=== PATIENT | male | born 1945 | race Caucasian/White ===

== ENCOUNTER 2019-03-06 04:56 | Inpatient (IN) ==
--- NOTE | 2019-02-07 15:32 | Anesthesiology Consultation ---
Date of Service February 07, 2019 History Surgery Operation Date: 03/06/19 07:00 Proposed Procedures p Left Total Knee Arthroplasty - Tj Pacheco DO Height/Weight Height: 5 ft 10 in Weight: 111.13 kg Allergies Allergy/AdvReac Type Severity Reaction Status Date / Time chlorhexidine Allergy Hallucinati Verified 02/04/19 10:56 [From Hibiclens] ng ketorolac [From Toradol] Allergy Verified 02/04/19 11:22 pentazocine [From Talwin] Allergy Rash Verified 02/04/19 10:56 Medications Home Medications Medication Instructions Recorded Confirmed Last Taken aspirin 81 mg PO QAM 02/04/19 02/04/19 Unknown atorvastatin 80 mg PO HS 02/04/19 02/04/19 Unknown finasteride 5 mg PO QPM 02/04/19 02/04/19 Unknown glimepiride 2 mg PO QAM 02/04/19 02/04/19 Unknown lisinopril-hydrochlorothiazide 1 tab PO QAM 02/04/19 02/04/19 Unknown metformin 1,000 mg PO BID 02/04/19 02/04/19 Unknown metoprolol succinate 50 mg PO QAM 02/04/19 02/04/19 Unknown tamsulosin 0.4 mg PO QPM 02/04/19 02/04/19 Unknown Past Medical History Medical History BPH (benign prostatic hyperplasia) CAD (coronary artery disease) STENT X 1 (2012) Diabetes mellitus, type 2 NIDDM Diverticular disease History of pancreatitis History of retinal tear S/P SURGICALLY REPAIR Hyperlipidemia Hypertension Myocardial Infarction 2013 S/P STENT X 1 Osteoarthritis Past Surgical History Surgical History H/O prior ablation treatment PROSTATE 11/2018 History of anesthesia reaction POST-OP URINARY RETENTION History of arthroscopic knee surgery B/L History of cardiac cath 2012= STENT X 1 History of colonoscopy History of intraocular lens implant History of laparoscopic cholecystectomy History of laparoscopy History of open reduction and internal fixation (ORIF) procedure RIGHT FIBULA Social History Smoking Status: Former smoker Do You Dip or Chew Tobacco: No Smoking End Date: QUIT 2012 Hx Alcohol Use: Yes Alcohol type: beer and hard liquor alcohol intake frequency: holidays/special occasions only Hx Substance Use: No substance use type: does not use
--- NOTE | 2019-02-07 15:34 | PAT Medication Instructions ---
Medication Instructions Date of Service February 07, 2019 Home Medications aspirin 81 mg PO QAM atorvastatin 80 mg PO HS finasteride 5 mg PO QPM glimepiride 2 mg PO QAM lisinopril-hydrochlorothiazide 1 tab PO QAM metformin 1,000 mg PO BID metoprolol succinate 50 mg PO QAM tamsulosin 0.4 mg PO QPM Continue as directed aspirin 81 mg PO QAM DO NOT take the morning of surgery glimepiride 2 mg PO QAM lisinopril-hydrochlorothiazide 1 tab PO QAM metformin 1,000 mg PO BID Take morning of surgery With a small sip of water, OTHERWISE NOTHING TO EAT OR DRINK AFTER MIDNIGHT: metoprolol succinate 50 mg PO QAM Take evening before surgery atorvastatin 80 mg PO HS finasteride 5 mg PO QPM metformin 1,000 mg PO BID tamsulosin 0.4 mg PO QPM Other Notes If you have any questions please call us at [phone] or [phone] or [phone] or [phone]
--- NOTE | 2019-02-08 09:13 | History & Physical Report ---
Date of Service February 08, 2019 Date of Surgery: 03-06-19 Assessment & Plan (1) Osteoarthritis of left knee: Risks and benefits of procedure discussed in detail today, patient would like to proceed with a left total knee replacement @ [facility] as scheduled. will obtain medical clearance prior to surgery as well as obtain PATs at [facility]. Will place on ASA 81mg po bid x 1 month post op, f/u 2 weeks post op for routine post-operative care and xray, sooner if having any problems. will make arrangements for HHPT at the time of discharge. History of Present Illness Chief Complaint: left knee pain Primary Care Provider: Jewel Bennett Mr Rj HUMPHREYS is a 73 year old male who complains of left knee pain, presents for pre-op evaluation prior to left total knee replacement at [facility]. He presents with pain, crepitus and decreased rom on the left side. He states that the symptoms have been chronic non-traumatic. The symptoms occur constantly with intermittent worsening. Currently the patient states that the symptoms are moderate-severe. The pain is described as aching and discomforting. The symptoms occur continuously. The symptoms are aggravated by ascending stairs, daily activities, descending stairs, first steps while awake, weight bearing and walking. Jweel states that the symptoms are relieved by no specific activity. In addition to knee pain he is also experiencing limping, joint pain, decreased mobility, crepitus, loss of motion and stiffness. He has been treated with physical therapy, has had Visco injection in the past with no relief, he has also used knee braces in the past with no relief. Allergies Allergy/AdvReac Type Severity Reaction Status Date / Time chlorhexidine Allergy Hallucinati Verified 02/04/19 10:56 [From Hibiclens] ng ketorolac [From Toradol] Allergy Verified 02/04/19 11:22 pentazocine [From Talwin] Allergy Rash Verified 02/04/19 10:56 Home Medications Home Medications Medication Instructions Recorded Confirmed Type aspirin 81 mg PO QAM 02/04/19 02/04/19 History atorvastatin 80 mg PO HS 02/04/19 02/04/19 History finasteride 5 mg PO QPM 02/04/19 02/04/19 History glimepiride 2 mg PO QAM 02/04/19 02/04/19 History lisinopril-hydrochlorothiazide 1 tab PO QAM 02/04/19 02/04/19 History metformin 1,000 mg PO BID 02/04/19 02/04/19 History metoprolol succinate 50 mg PO QAM 02/04/19 02/04/19 History tamsulosin 0.4 mg PO QPM 02/04/19 02/04/19 History Past Med/Surg History Medical History BPH (benign prostatic hyperplasia) CAD (coronary artery disease) STENT X 1 (2012) Diabetes mellitus, type 2 NIDDM Diverticular disease History of pancreatitis History of retinal tear S/P SURGICALLY REPAIR Hyperlipidemia Hypertension Myocardial Infarction 2012 S/P STENT X 1 Osteoarthritis Surgical History H/O prior ablation treatment PROSTATE 11/2018 History of anesthesia reaction POST-OP URINARY RETENTION History of arthroscopic knee surgery B/L History of cardiac cath 2012= STENT X 1 History of colonoscopy History of intraocular lens implant History of laparoscopic cholecystectomy History of laparoscopy History of open reduction and internal fixation (ORIF) procedure RIGHT FIBULA Family History Father Family history of diabetes mellitus Mother Family history of diabetes mellitus Grandmother (Paternal) H/O cancer of gall bladder Mother Tuberculosis Social History Preferred Language: Luxembourger Communication Ability: Effective Pool Hall Inspector Required: No Beliefs That Will Affect Care: None Current Living Situation: Spouse Other Information That Helps Us Care for You: No Feels Safe at Home: Yes Safety Concerns: Feels Safe At This Time Smoking Status: Former smoker Hx Alcohol Use: Yes Hx Substance Use: No Review of Systems All systems reviewed & are unremarkable except as noted in HPI & below Constitutional: no fever, no chills and no sweats Respiratory: no cough and no dyspnea Cardiovascular: no chest pain, no dyspnea and no orthopnea Gastrointestinal: no nausea and no vomiting Integumentary: no rash and no lesions Physical Exam Vital Signs (Past 24 Hours): Ht: 5ft 10inches Wt: 111 kg BP: 136/84 Pulse: 82 Constitutional: WD/WN, vitals as above no acute distress Respiratory: normal respiratory effort, lungs clear to auscultation no labored breathing and does not use accessory muscles Cardiovascular: RRR, no murmur, no edema Gastrointestinal (Abdomen): normal bowel sounds, soft, nontender, no hepatosplenomegaly Musculoskeletal: Left Knee- He ambulates with a limp, there is no atrophy or erythema, +1 effusion, diffuse tenderness to the knee greatest over medial compartment, negative patellar apprehension , mild crepitation with motion, Patella position neutral, wilian's negative, Janet's - lateral positive, Janet's - medial positive, Posterior drawer- negative, anterior drawer negative, valgus stress negative, varus stress negative, no extensor lag, pain with active range of motion, less pain with passive painful ROM, Range of motion 0/3/110. No pain with active/passive ROM of ankle. Lower extremity strength normal. Lower extremity neuro-vascular is normal Results & Data Diagnostic Findings Left Knee X-ray from September 2018: Left knee series showing advanced degenerative changes to the left knee, narrowing of the medial compartment and patello-femoral joint, there is osteophyte formation and subchondral sclerosis noted. overall varus alignment. no acute bony pathology noted. no loose bodies noted.
--- NOTE | 2019-02-08 11:23 | Anesthesiology Consultation ---
Date of Service February 08, 2019 Assessment & Plan (1) Encounter for pre-operative examination: - PCP= 02/15/19= "medically stable and cleared for elective left knee replacement." Preop testing reviewed-- "stable." - Continue ASA perioperatively - Check BSG AM DOS - Did not give patient chlorhexidine wipes 2/2 patient hx of hallucinations adverse reaction* Chart Review Chart Review: Acceptable Risk for Surgery and Patient seen in Pre Admission Testing Teaching & Discussion Pre-Anesthesia Teaching/Discussion Notes: Instructed NPO after midnight before surgery,except medications with 15 cc of water. Medication instructions provided according to the PAT guidelines. History Surgery Operation Date: 03/06/19 07:00 Proposed Procedures p Left Total Knee Arthroplasty - Tj Pacheco DO Height/Weight Height: 5 ft 10 in Weight: 115 kg Allergies Allergy/AdvReac Type Severity Reaction Status Date / Time pentazocine [From Talwin] Allergy Rash Verified 02/04/19 10:56 chlorhexidine AdvReac HALLUCINATI Verified 02/08/19 11:39 [From Hibiclens] ONS ketorolac [From Toradol] AdvReac POST-OP Verified 02/08/19 11:39 BLEEDING Medications Home Medications Medication Instructions Recorded Confirmed Last Taken aspirin 81 mg PO QAM 02/04/19 02/04/19 Unknown atorvastatin 80 mg PO HS 02/04/19 02/04/19 Unknown finasteride 5 mg PO QPM 02/04/19 02/04/19 Unknown glimepiride 2 mg PO QAM 02/04/19 02/04/19 Unknown lisinopril-hydrochlorothiazide 1 tab PO QAM 02/04/19 02/04/19 Unknown metformin 1,000 mg PO BID 02/04/19 02/04/19 Unknown metoprolol succinate 50 mg PO QAM 02/04/19 02/04/19 Unknown tamsulosin 0.4 mg PO QPM 02/04/19 02/04/19 Unknown Past Medical History Medical History BPH (benign prostatic hyperplasia) Bifascicular block Bradycardia CHRONIC; ASYMPTOMATIC CAD (coronary artery disease) STENT TO LCX OM (2011) CKD (chronic kidney disease) STAGE III Diabetes mellitus, type 2 NIDDM Diverticular disease History of pancreatitis 07/2018 Hyperlipidemia Hypertension Myocardial Infarction STENT TO LCX OM (2011) Obesity Osteoarthritis Past Family History Family History Father Family history of diabetes mellitus Mother Family history of diabetes mellitus Grandmother (Paternal) H/O cancer of gall bladder Mother Tuberculosis Past Surgical History Surgical History H/O prior ablation treatment PROSTATE 11/2018 History of arthroscopic knee surgery B/L History of cardiac cath STENT TO LCX OM (2011) History of colonoscopy History of intraocular lens implant History of laparoscopic cholecystectomy History of open reduction and internal fixation (ORIF) procedure RIGHT FIBULA History of retinal tear S/P SURGICALLY REPAIR Past Anesthesia History No Family Hx of Anesthesia Complications and Other Post-op urinary retention X 2 episodes Post-op bleeding with prior knee surgery felt 2/2 toradol (1999); no blood transfusion needed per patient. History of PONV No Motion Sickness Screening History of Motion Sickness: No Social History Smoking Status: Former smoker Do You Dip or Chew Tobacco: No Smoking End Date: QUIT 2012; 1-2PPD X 30+ YEARS Hx Alcohol Use: Yes Alcohol type: beer and hard liquor alcohol intake frequency: holidays/special occasions only Hx Substance Use: No substance use type: does not use Exercise / Class Metabolic Activity II 4-5 Yardwork/Stairs/Walk up hill Review of Systems Patient denies chest pain, shortness of breath, dyspnea on exertion, reflux, cough, wheezing, palpitations. Physical Exam Vital Signs VITALS BP 100/65 P 55 TEMP 97.7 SP02 97%RA RESP 20 PHYSICAL Full neck and c-spine range of motion. Full TMJ range of motion. TMD 3.5 finger breaths Mallampati Score 2 Dentition: several missing sides/molars; chipped upper front, poor dentition, implants on molars Lungs: clear throughout to auscultation Cardiac: regular rate and rhythm, no murmurs noted Spine: normal Carotid arteries: negative bruit Extremities: no edema Trimmed ramsey Testing Electrocardiogram Date: 02/08/19 SB at 55bpm. LAD. RBBB. Chest X-Ray Date: 02/08/19 The heart is enlarged and there is atherosclerotic calcification of the thoracic aorta. No active disease in the chest. Laboratory Results 02/08/19 12:00 02/08/19 12:00 Blood Type B Negative 02/08/19 12:00 Antibody Screen NEGATIVE 02/08/19 12:00 PT 10.1 Seconds (9.0-12.0) 02/08/19 12:00 INR 1.0 (0.9-1.1) 02/08/19 12:00 APTT 24.2 Seconds (21.0-31.0) 02/08/19 12:00 Hemoglobin A1c 6.9 % (4.5-5.6) H 02/08/19 12:00 Urine Color Yellow 02/08/19 12:00 Urine Appearance Clear (Clear) 02/08/19 12:00 Urine pH 5.0 (4.5-7.5) 02/08/19 12:00 Ur Specific [place] 1.020 (1.000-1.030) 02/08/19 12:00 Urine Protein Negative (Negative) 02/08/19 12:00 Urine Glucose (UA) Negative (Negative) 02/08/19 12:00 Urine Ketones Negative (Negative) 02/08/19 12:00 Urine Nitrite Negative (Negative) 02/08/19 12:00 Ur Leukocyte Esterase Trace (Negative) H 02/08/19 12:00 Urine WBC (Auto) 1-5 /hpf (0-5) 02/08/19 12:00 Urine RBC (Auto) 0-4 /hpf (0-4) 02/08/19 12:00 U Hyaline Cast (Auto) 1-5 /lpf (0-5) 02/08/19 12:00 U Epithel Cells (Auto) 5-10 /lpf (0-5) H 02/08/19 12:00 Urine Bacteria (Auto) Negative (Negative) 02/08/19 12:00 02/08/19 12:00 Urine Culture - Final Urine,Clean Catch No growth - less than 1,000 colonies/mL.
--- NOTE | 2019-02-08 12:46 | XRay Report ---
TWO VIEW CHEST CLINICAL HISTORY: Preoperative assessment. FINDINGS: PA and lateral chest radiographs are obtained. No prior studies are available for compariso n at the time of dictation. The heart is enlarged and there is atherosclerotic calcification of the thoracic aorta. The pulmonary vasculature is noncongested. The lungs and pleural spaces are clear. T here is no pneumothorax. The skeletal structures are osteopenic. Degenerative change is noted through out the thoracic spine. The bony thorax appears intact. Cholecystectomy clips are seen in the right u pper quadrant. IMPRESSION: Cardiomegaly with no active disease in the chest. Electronically signed by: Krishna Trejo M.D. 02/08/2019 12:45 PM
[2019-02-08 13:35] LABS: Basophils # (auto) 0.03 K/uL (0-0.2); Basophils % (auto) 0.4 %; Eosinophils # (auto) 0.31 K/uL (0-0.5); Eosinophils % (auto) 4.1 %; Hematocrit (blood only) 39.5 % (42-52); Hemoglobin 13.1 g/dL (14.0-18.0); Immature Granulocytes # (auto) 0.01 K/uL (0.00-0.02); Immature Granulocytes % (auto) 0.1 %; Lymphocytes # (auto) 1.42 K/uL (1.2-3.4); Lymphocytes % (auto) 18.6 %; Mean Corpuscular Hgb Conc 33.2 g/dL (32-36); Mean Corpuscular Volume 88.8 fL (80-100); Mean Platelet Volume 10.8 fL (7.4-10.4); Monocytes # (auto) 0.47 K/uL (0.11-0.59); Monocytes % (auto) 6.2 %; Neutrophils # (auto) 5.39 K/uL (1.4-6.5); Neutrophils % (auto) 70.6 %; Platelet Count 199 K/uL (130-400); RDW Coefficient of Variation 13.6 % (11.5-14.5); RDW Standard Deviation 44.5 fL (36.4-46.3); Red Blood Count 4.45 M/uL (4.7-6.1); White Blood Count 7.63 K/uL (4.8-10.8)
[2019-02-08 13:38] LABS: Appearance Urine Clear (Clear); Bacteria Urine Automated Negative (Negative); Bilirubin Urine Negative (Negative); Blood Urine Negative (Negative); Color Urine Yellow; Glucose Urine UA Negative (Negative); Ketones Urine Negative (Negative); Leukocyte Esterase Urine Trace (Negative); Nitrite Urine Negative (Negative); Protein Urine Negative (Negative); RBC Urine Automated 0-4 /hpf (0-4); Urobilinogen Urine Negative (Negative)
[2019-02-08 13:47] LABS: Partial Thromboplastin Ratio 0.9; Partial Thromboplastin Time 24.2 Seconds (21.0-31.0); Prothrombin Time 10.1 Seconds (9.0-12.0)
[2019-02-08 13:48] LABS: Albumin Level 3.7 gm/dl (3.4-5.0); BUN Creatinine Ratio 23.5 (10-20); Calcium 8.7 mg/dl (8.5-10.1); Creatinine Clr Calc Pharmacy 60.6 ml/min; Est GFR (African American) 57.2; Est GFR (Non-African American) 49.3; Potassium 4.9 mmol/L (3.5-5.1)
[2019-02-08 13:53] LABS: Estimated Average Glucose 151 mg/dl; Hemoglobin A1C 6.9 % (4.5-5.6)
[2019-03-06] MEDS ORDERED: FAMOTIDINE 20 MG TAB PO SCH (06:00)
[2019-03-06] MEDS ORDERED: ACETAMINOPHEN 500 MG TAB PO SCH (06:00)
[2019-03-06] MEDS ORDERED: CeleBREX 200 MG CAP PO SCH (06:00)
[2019-03-06] MEDS ORDERED: CEFAZOLIN 2000MG 2,000 MG/15 ML SYR IV SCH (06:00)
[2019-03-06] MEDS ORDERED: GABAPENTIN 300 MG PO SCH (06:00)
[2019-03-06] MEDS ORDERED: LR 500ML BOLUS, THEN 15ML/HR IV SCH (06:00)
[2019-03-06] MEDS ORDERED: dexAMETHasone 4 MG TAB PO SCH (06:00)
[2019-03-06] MEDS ORDERED: BUPIVACAINE 0.5 % 5 MG/1 ML PF 10ML VIAL ONE (06:30)
[2019-03-06] MEDS ORDERED: ROPIVACAINE 0.5% 5 MG/ML 30 ML VIAL ONE (06:30)
[2019-03-06] MEDS ORDERED: MIDAZOLAM HCL 1 MG/ML 2ML VIAL ONE (06:37)
[2019-03-06] MEDS ORDERED: POVIDONE-IODINE OP SOLN 30 ML BTL ONE (06:37)
[2019-03-06] MEDS ORDERED: BACITRACIN INJ 50,000 UNIT VIAL ONE (06:37)
[2019-03-06] MEDS ORDERED: fentaNYL citrate 100 MCG/2 ML VIAL ONE (06:37)
[2019-03-06] MEDS ORDERED: TRANEXAMIC ACID 1,000 MG in 0.9 % SODIUM CHLORIDE 100 ML IV SCH ×2 (07:00→07:30)
--- NOTE | 2019-03-06 07:01 | History & Physical Bridge Note ---
Date of Service March 06, 2019 History & Physical Bridge Note I have examined the patient, reviewed the History & Physical and in the interval since the performance of the History & Physical I have noted the following changes of clinical significance: no changes noted
[2019-03-06] MEDS ORDERED: ROPIVACAINE 0.5% HCL/PF 150 MG, BUPIVACAINE 0.5% MPF 30 ML, EPINEPHrine 30MG/30ML (OR U... INFIL SCH ×2 (07:30)
[2019-03-06] MEDS ORDERED: ePHEDrine sulfate 50 MG/ML SYR ONE (08:12)
[2019-03-06] MEDS ORDERED: PROPOFOL IV EMULSION 10 MG/ML 20 ML VIAL IV ONE ×2 (08:12→08:55)
[2019-03-06] MEDS ORDERED: LIDOCAINE HCL 2% 2 ML VIAL/AMP(20MG/ML) INFIL ONE (08:12)
--- NOTE | 2019-03-06 08:28 | Operative Report ---
Post Operative Report Pre & Post Diagnosis Operation Date: 03/06/19 07:00 Pre-Op Diagnosis: Left Knee Osteoarthritis Post-Op Diagnosis: Left Knee Osteoarthritis Procedure Operation Date: 03/06/19 07:00 Actual Procedures p Left Total Knee Arthroplasty(Left) utilizing Reyes & Nephew journey 2 patient matched total knee arthroplasty size 8 femur size 7 tibia size 10 polyethylene size 35 oval patella- Tj Pacheco DO Surgeon Tj Pacheco DO Manager Behavioral Chadd PIMENTEL Estimated Blood Loss 5 Findings Consistent with Post-Op Diagnosis Patient presents with ongoing complaints of pain about the left knee with severe end-stage tricompartmental degenerative joint disease high-grade synovitis bone to bone changes marginal osteophyte subchondral cystic changes intra-articular loose bodies with a large effusion of his left knee presents after failed attempts at conservative management the above intraoperative findings were noted Specimens Bone and cartilage Drains Medium bore Hemovac Anesthesia Type General Regional Complications none Disposition Accompanied Patient To Recovery: No Disposition: Recovery Room Indications Patient presents as a very pleasant 73-year-old white male with complaints of ongoing pain about his left knee is been no response to conservative management including physical therapy anti-inflammatories Visco supplementation corticosteroid injection relative rest activity modification presents the above intraoperative findings noted times surgery Description of Procedure After proper prepping and draping of the left lower extremity anterior midline incision was made over the region of the extensor extensor mechanism after meticulous hemostasis was obtained and maintained in subcutaneous tissues a medial parapatellar incision was made The patella was subluxed lateralward the medial lateral gutter were cleaned from any hypertrophic synovitis and scar tissue of the distal femoral block was placed and the distal femoral osteotomy cut was made subsequently the chamfers anterior and posterior osteotomy cuts were made utilizing the 4-in-1 block the tibia was subsequently subluxed anteriorward medial and ateral meniscal remnants were excised in their entirety remnants of the anterior and posterior cruciate ligaments were excised in their entirety excellent exposure of the proximal tibia was obtained the tibial osteotomy guide was placed on the proximal tibial osteotomy cut was made once again the knee was irrigated with copious amounts of sterile saline solution the patella was subsequently everted lateralward thickened scar tissue around the patella was removed the patella was subsequently cut utilizing a freehand technique and was drilled prepared for final preparation and placement of patella socially flexion-extension gaps were checked and the equal and symmetric trials were placed to the appropriate femoral and tibial trials with poly-spacer being placed for equal flexion and extension gaps and full range of motion including extension to 0 and flexion to 140 the trial components after having been taken to recovery range of motion was subsequently removed meticulous hemostasis was obtained and maintained subsequently a knee block injection of joint cocktail including ropivacaine 0.5% 150 mg. Bupivacaine 0.5% epinephrine 1-200,030 mL's toradol 30 mg dexamethasone 4 mg ketamine 10 mg clonidine 100 micrograms normal saline solution 30 mg was infiltrated into the soft tissues of the posterior knee medial lateral gutters and periosteal synovium special attention was paid to protect neurovascular structures at all times subsequently trial components having been removed the knee was irrigated with sterile saline solution. debris was removed the proximal tibia was subsequently prepared and was made ready for the placement of the tibial component tibial component was also cemented and tamped into position the femoral component was subsequently placed and cemented in the position the patellar component was subsequently cemented in position because hemostasis once again obtained and maintained wound having been thoroughly irrigated with debridement and debridement lavage was performed as well as a medial parapatellar incision closed with #1 Vicryl in interrupted fashion subcutaneous was closed with #2 Vicryl skin was closed with skin clips. PA-C was necessary for prepping and drapping as well as wound closure of deep fascia Sub cutaneous tissue and skin and was necessary for the case. A sterile compressive dressing was placed patient was taken to recovery in stable condition of report dictated by Junior I attest to the content of the Intraoperative Record and any orders documented therein. Any exceptions are noted below. I attest to the content of the Intraoperative Record and any orders documented therein. Any exceptions are noted below.
[2019-03-06] MEDS ORDERED: ATROPINE SULFATE 0.1 MG/ML 10ML SYR IV PRN (08:32)
[2019-03-06] MEDS ORDERED: ePHEDrine sulfate 50 MG/ML AMP IV PRN (08:32)
--- NOTE | 2019-03-06 09:49 | XRay Report ---
XR knee LT 2V routine CLINICAL HISTORY: Postoperative evaluation. COMPARISON: None FINDINGS: Alignment of the left knee arthroplasty is anatomic. No fracture or unexpected radiopaque foreign body. Surgical drains are in place. There is moderate vascular calcification. IMPRESSION: Expected findings following total left knee arthroplasty. Electronically signed by: Eugene Narayanan M.D. 03/06/2019 9:48 AM
--- NOTE | 2019-03-06 10:13 | Anesthesiology Progress Note ---
Date of Service March 06, 2019 Anesthesia Post Procedure Vital Signs Vital Signs: Temp Pulse Pulse Resp BP Pulse Ox 03/06/19 09:50 64 18 125/69 97 03/06/19 09:40 36.6 C 59 L 18 118/66 96 03/06/19 09:30 65 12 115/61 96 03/06/19 09:20 62 12 115/61 97 03/06/19 09:13 36.6 C 63 14 106/54 L 99 03/06/19 06:02 36.9 C 61 20 138/81 94 Pain Intensity Left Knee: Pain Intensity: 8 Right Knee: Pain Intensity: 7 Notes Mental Status: alert / awake / arousable and participated in evaluation Nausea / Vomiting: adequately controlled Pain: adequately controlled Airway Patency, RR, SpO2: stable & adequate BP & HR: stable & adequate Hydration State: stable & adequate Neuraxial Anesthesia: was administered and sensory block is resolving Anesthetic Complications: no major complications apparent
[2019-03-06] MEDS ORDERED: NALOXONE HCL 0.4 MG/1 ML VIAL/CARP IV PRN (10:34)
[2019-03-06] MEDS ORDERED: BISACODYL 10 MG SUPP PR PRN (10:34)
[2019-03-06] MEDS ORDERED: HYDROmorphone INJ 0.5 MG/0.5 ML SYR IV PRN (10:34)
[2019-03-06] MEDS ORDERED: ONDANSETRON INJ 2 MG/ML 2 ML VIAL IV PRN (10:34)
[2019-03-06] MEDS ORDERED: MAGNESIUM HYDROXIDE SUSP 30 ML UDC PO PRN (10:34)
[2019-03-06] MEDS ORDERED: PHARMACY GLYCEMIC MGMT CONSULT PRN (10:41)
[2019-03-06] MEDS ORDERED: LISINOPRIL/HCTZ 20/25MG 1 TAB PO STA (11:03)
[2019-03-06] MEDS ORDERED: CARBOHYDRATES FOR HYPOGLYCEMIA PO PRN (12:30)
[2019-03-06] MEDS ORDERED: DEXTROSE 50% 50 ML SYRINGE IV PRN (12:30)
[2019-03-06] MEDS ORDERED: GLUCOSE 40% GEL 15 GM TUBE PO PRN (12:30)
[2019-03-06] MEDS ORDERED: GLUCOSE 10 TABS/TUBE PO PRN (12:30)
[2019-03-06] MEDS ORDERED: INSULIN HUMAN NPH SC SCH ×2 (12:30→21:00)
[2019-03-06] MEDS ORDERED: GLUCAGON FOR INJ 1 MG VIAL IM PRN (12:30)
[2019-03-06] MEDS: SODIUM CHLORIDE 0.9% 1000ML 1,000 ML IV SCH ×2 (13:48→23:51)
[2019-03-06] MEDS: OXYCODONE HCL IR 5 MG TAB (IMMEDIATE RELEASE) PO PRN ×2 (13:49→19:15)
[2019-03-06] MEDS: INSULIN ASPART 100 UNITS/ML 3 ML PEN SC SCH ×3 (13:56→20:56)
[2019-03-06] MEDS: ACETAMINOPHEN 500 MG TAB PO SCH ×2 (13:59→20:50)
--- NOTE | 2019-03-06 15:52 | Pharmacy Report ---
Glycemic Control Consultation - Date of Service March 06, 2019 - Scope Scope: Glycemic Pharmacist consulted by Chadd Beaver on 03/06/19 for glycemic control and to write orders per [facility] inpatient glycemic control protocol - Objective Weight: 114.1 kg Accuchecks BSG (last 24hrs): 03/06/19 03/06/19 05:37 12:15 POC Glucose 124 H 161 H HbA1c: Hemoglobin A1c 6.9 % (4.5-5.6) H 02/08/19 12:00 - Recent Pertinent Medications Outpatient Anti-diabetic Regimen: * Metformin 1000 mg PO BID * Glimepiride 2 mg PO QAM * A1c = 6.9 % on 02/08/19 Risk Factors for Insulin Resistance: * Steroids: Dexamethasone 8 mg PO preop x1 dose * Infection: none * Pressors: none * IVF: NS at 100 ml/hr * Recent Surgery: L TKA today * Diet: T2DM * Mechanical Ventilation: none - Assessment & Plan Assessment & Plan: ASSESSMENT: * 73 y/o M with NIDDM admitted for L TKA today. Patient was on oral anti- diabetic meds - Metformin and Glimepiride at home. HbA1c = 6.9%. * Patient received 1 dose of oral Dexamethasone 8 mg preop today. This can cause steroid induced hyperglycemia. * Started Basal + Bolus insulin based on weight and stress of 2. PLAN FOR INPATIENT GLYCEMIC CONTROL: * Holding outpatient oral diabetes medications * Basal insulin * NPH 30 units SQ x 1 dose this AM and the HS dose based on scale: - BSG less than 120- give 0 units - BSG 120 - 180 - give 10 units - BSG greater than 180 - give 20 units * Bolus insulin * NovoLog per scale ACHS or Q6hrs while NPO * Goal Range: Low 110 mg/dL - High 140 mg/dL * Correction Factor: 20 mg/dL/unit * Nutritional / Prandial insulin per carb ratio of 1 unit per 7 grams CHO consumed * Please note that the plan above was derived based on current level of insulin resistance and hospital stress. These recommendations are appropriate for inpatient admission only. Plan of care upon discharge will need to be reassessed to avoid potential outpatient hypo/hyperglycemia. Thank you.
[2019-03-06] MEDS: FERROUS GLUCONATE 324 MG TAB PO SCH (16:58)
[2019-03-06] MEDS: CEFAZOLIN 2000MG 2,000 MG/15 ML SYR IV SCH ×2 (16:58→23:43)
--- NOTE | 2019-03-06 17:33 | Consultation ---
Date of Consultation March 06, 2019 Assessment & Plan (1) History of total knee arthroplasty: Status post left TKA on 03/06 Doing well postoperatively -Follow CBC in the morning -Pain control, bowel regimen as per orthopedic surgery -Aspirin 81 mg p.o. twice daily for DVT prophylaxis -PT/OT evaluations will be needed (2) Hyperlipidemia: Controlled as per patient -Continue atorvastatin (3) Hypertension: Blood pressures here are well controlled, of note he did get a dose of his lisinopril/HCTZ today -I would recommend holding lisinopril/HCTZ until we see what his renal function looks like in the morning given his chronic kidney disease stage III -Follow BMP in the morning -Follow blood pressures -Continue metoprolol succinate 50 mg once daily (4) Diabetes mellitus, type 2: Blood sugars well controlled here, hemoglobin A1c was 6.9% on preoperative labs in 01/2019 -Orthopedics has consulted pharmacy for glycemic management -Patient is on metformin and glimepiride at home which are held here -Pharmacy has him on insulin human NPH 30 units daily and sliding scale NPH at bedtime, as well as NovoLog with meals -ADA diet (5) BPH (benign prostatic hyperplasia): With lower urinary tract symptoms and a history of urinary retention postoperatively -Maintain Gomez catheter for now -Continue tamsulosin -Trial of void likely tomorrow (6) CAD (coronary artery disease): With history of [place] and stent to the left circumflex in 2011 No angina at this time -Continue aspirin, statin, metoprolol (7) Obesity: BMI 36.1 -Needs weight loss (8) CKD (chronic kidney disease) stage 3, GFR 30-59 ml/min: Baseline creatinine around 1.4-1.6 -Follow BMP in the morning -Hold lisinopril/HCTZ until after creatinine checked in the morning -Avoid nephrotoxins -Renally dose medications (9) DVT prophylaxis: Aspirin 81 mg p.o. twice daily, SCDs Disposition-remain on medical floor Hospitalist service will continue to follow given significant medical history History of Present Illness Requesting Physician: Dr. Pacheco Reason for Consultation: Postop medical management Attending Physician: Tj Pacheco, History of Present Illness This patient is a 73-year-old male with a history of DC/CAD with a stent placed in 2012, BPH, DM 2, HL, HTN, CKD stage III, osteoarthritis, and gallstone pancreatitis, who is here postoperatively from a left TKA he underwent earlier today. He is doing very well in the postop period. He denies headache or lightheadedness, denies nausea or vomiting, denies chest pain or shortness of breath, denies abdominal pain. He has a Gomez catheter in place due to history of postop urinary retention. He has no complaints at this time. Allergies Allergy/AdvReac Type Severity Reaction Status Date / Time pentazocine [From Talwin] Allergy Hallucinati Verified 03/06/19 05:41 ng chlorhexidine AdvReac Rash Verified 03/06/19 05:41 [From Hibiclens] ketorolac [From Toradol] AdvReac POST-OP Verified 02/08/19 11:39 BLEEDING Home Medications Home Medications Medication Instructions Recorded Confirmed Type aspirin 81 mg PO QAM 02/04/19 03/06/19 History atorvastatin 80 mg PO HS 02/04/19 03/06/19 History finasteride 5 mg PO QPM 02/04/19 03/06/19 History glimepiride 2 mg PO QAM 02/04/19 03/06/19 History lisinopril-hydrochlorothiazide 1 tab PO QAM 02/04/19 03/06/19 History metformin 1,000 mg PO BID 02/04/19 03/06/19 History metoprolol succinate 50 mg PO QAM 02/04/19 03/06/19 History tamsulosin 0.4 mg PO QPM 02/04/19 03/06/19 History Patient History Medical History Diverticulosis (Acute) BPH (benign prostatic hyperplasia) CKD (chronic kidney disease) stage 3, GFR 30-59 ml/min Diabetes mellitus, type 2 NIDDM History of pancreatitis 07/2018 Hyperlipidemia Hypertension Myocardial Infarction STENT TO LCX OM (2011) Osteoarthritis Bifascicular block Bradycardia CHRONIC; ASYMPTOMATIC CAD (coronary artery disease) STENT TO LCX OM (2011) Obesity Surgical History H/O prior ablation treatment PROSTATE 11/2018 History of arthroscopic knee surgery B/L History of cardiac cath STENT TO LCX OM (2011) History of colonoscopy History of intraocular lens implant History of laparoscopic cholecystectomy History of open reduction and internal fixation (ORIF) procedure RIGHT FIBULA History of retinal tear S/P SURGICALLY REPAIR Family History Father Family history of diabetes mellitus Mother Family history of diabetes mellitus Grandmother (Paternal) H/O cancer of gall bladder Mother Tuberculosis Social History Preferred Language: Malay Communication Ability: Effective Fashion Designer Required: No Beliefs That Will Affect Care: None Current Living Situation: Spouse Other Information That Helps Us Care for You: No Feels Safe at Home: Yes Safety Concerns: Feels Safe At This Time Smoking Status: Former smoker Do You Dip or Chew Tobacco: No Smoking End Date: QUIT 2012; 1-2PPD X 30+ YEARS Second Hand Exposure: Yes (PREVIOUS EXPOSURE) Hx Alcohol Use: Yes Alcohol type: beer and hard liquor Hx Substance Use: No Review of Systems Review of Systems: All systems reviewed & are unremarkable except as noted in HPI & below Physical Exam Constitutional: WD/WN, vitals as above + obese; no acute distress Eyes: PERRL, conjunctivae normal, anicteric sclerae ENMT: external ear and nose normal, oropharynx normal Neck: trachea midline, no thyromegaly Respiratory: normal respiratory effort, lungs clear to auscultation Cardiovascular: RRR, no murmur, no edema Gastrointestinal (Abdomen): normal bowel sounds, soft, nontender, no hepatosplenomegaly Musculoskeletal: Extremities: + extremities abnormal to inspection (Left lower extremity with dressing in place with ice pack, not removed), no cyanosis and no clubbing Skin: no rashes, warm and dry Neurologic: moves all extremities and awake; no focal motor deficits Psychiatric: A+Ox3, euthymic affect Results & Data Vital Signs (Past 12 Hours) Vital Signs Temp Pulse Pulse Resp BP Pulse Ox 03/06/19 15:32 36.5 C 56 L 18 124/69 97 03/06/19 13:20 58 L 18 142/82 H 97 03/06/19 12:18 54 L 18 151/83 H 98 03/06/19 11:14 57 L 18 153/88 H 98 03/06/19 10:44 57 L 18 137/85 97 03/06/19 10:20 36.7 C 60 14 132/78 98 03/06/19 09:50 64 18 125/69 97 03/06/19 09:40 36.6 C 59 L 18 118/66 96 03/06/19 09:30 65 12 115/61 96 03/06/19 09:20 62 12 115/61 97 03/06/19 09:13 36.6 C 63 14 106/54 L 99 03/06/19 06:02 36.9 C 61 20 138/81 94 Laboratory Results 03/06/19 03/06/19 Range/Units 12:15 05:37 POC Glucose 161 H 124 H (70-99)
[2019-03-06] MEDS: TAMSULOSIN HCL 0.4 MG CAP PO SCH (20:48)
[2019-03-06] MEDS: FINASTERIDE 5 MG TAB PO SCH (20:48)
[2019-03-06] MEDS: ASPIRIN 81 MG ECTAB PO SCH (20:49)
[2019-03-06] MEDS: ATORVASTATIN 40 MG TAB PO SCH (20:49)
[2019-03-06] MEDS: DOCUSATE SODIUM 100 MG CAP PO SCH (20:49)
[2019-03-06] MEDS: SENNA 8.6 MG TAB PO SCH (20:50)
[2019-03-06] MEDS ORDERED: Nursing to Pharmacy Communication ONE (21:05)
[2019-03-07] MEDS: OXYCODONE HCL IR 5 MG TAB (IMMEDIATE RELEASE) PO PRN ×3 (00:22→22:33)
[2019-03-07 06:05] LABS: Hematocrit (blood only) 32.9 % (42-52); Hemoglobin 11.1 g/dL (14.0-18.0); Mean Corpuscular Hgb Conc 33.7 g/dL (32-36); Mean Corpuscular Volume 87.7 fL (80-100); Mean Platelet Volume 10.5 fL (7.4-10.4); Platelet Count 185 K/uL (130-400); RDW Coefficient of Variation 13.1 % (11.5-14.5); RDW Standard Deviation 42.2 fL (36.4-46.3); Red Blood Count 3.75 M/uL (4.7-6.1); White Blood Count 11.52 K/uL (4.8-10.8)
[2019-03-07 06:18] LABS: BUN Creatinine Ratio 23.3 (10-20); Calcium 8.6 mg/dl (8.5-10.1); Creatinine Clr Calc Pharmacy 54.9 ml/min; Potassium 5.1 mmol/L (3.5-5.1)
[2019-03-07] MEDS: ACETAMINOPHEN 500 MG TAB PO SCH ×3 (06:19→21:14)
--- NOTE | 2019-03-07 07:52 | Anesthesiology Progress Note ---
Date of Service March 07, 2019 Anesthesia Post Procedure Vital Signs Vital Signs: Temp Pulse Pulse Resp BP Pulse Ox 03/07/19 03:08 36.4 C L 54 L 16 101/57 L 98 03/06/19 22:59 36.7 C 59 L 16 104/58 L 96 03/06/19 20:03 36.8 C 58 L 18 120/71 96 03/06/19 15:32 36.5 C 56 L 18 124/69 97 03/06/19 13:20 58 L 18 142/82 H 97 03/06/19 12:18 54 L 18 151/83 H 98 03/06/19 11:14 57 L 18 153/88 H 98 03/06/19 10:44 57 L 18 137/85 97 03/06/19 10:20 36.7 C 60 14 132/78 98 03/06/19 09:50 64 18 125/69 97 03/06/19 09:40 36.6 C 59 L 18 118/66 96 03/06/19 09:30 65 12 115/61 96 03/06/19 09:20 62 12 115/61 97 03/06/19 09:13 36.6 C 63 14 106/54 L 99 Pain Intensity Left Knee: Pain Intensity: 4 Right Knee: Pain Intensity: 7 Notes Mental Status: alert / awake / arousable and participated in evaluation Patient Amnestic to Procedure: Yes Nausea / Vomiting: adequately controlled Pain: adequately controlled Airway Patency, RR, SpO2: stable & adequate BP & HR: stable & adequate Hydration State: stable & adequate Neuraxial Anesthesia: was administered and sensory block resolved Anesthetic Complications: no major complications apparent and Pt Satisfied with anesthetic care
[2019-03-07] MEDS: FERROUS GLUCONATE 324 MG TAB PO SCH ×2 (08:33→17:58)
[2019-03-07] MEDS: DOCUSATE SODIUM 100 MG CAP PO SCH ×2 (08:33→21:13)
[2019-03-07] MEDS: METOPROLOL SUCC 50MG EXT REL TAB PO SCH (08:33)
[2019-03-07] MEDS: MULTIVITAMIN TAB PO SCH (08:34)
[2019-03-07] MEDS: ASPIRIN 81 MG ECTAB PO SCH ×2 (08:34→21:13)
[2019-03-07] MEDS: INSULIN ASPART 100 UNITS/ML 3 ML PEN SC SCH ×4 (08:35→21:04)
[2019-03-07] MEDS ORDERED: GLIMEPIRIDE 2 MG TAB PO SCH (09:00)
[2019-03-07] MEDS ORDERED: METFORMIN HCL 500 MG TAB PO SCH (09:00)
[2019-03-07] MEDS ORDERED: LISINOPRIL/HCTZ 20/25MG 1 TAB PO SCH (09:00)
--- NOTE | 2019-03-07 10:05 | Orthopedic Progress Note ---
Date of Service March 07, 2019 Assessment & Plan (1) Osteoarthritis of left knee: Postop day 1 status post left total knee arthroplasty. Begin PT and OT protocols today. Weightbearing as tolerated DVT prophylaxis with aspirin twice daily, SCDs and PK hose. Pain management with acetaminophen hydromorphone and oxycodone. DC planning-patient is planning on outpatient PT upon discharge. Subjective Postop day 1 status post left total knee arthroplasty. Patient is lying in bed conversing with family. He is alert and oriented. He has no complaints. Pain is controlled. Denies shortness of breath, chest pain, lightheadedness. He does ask for a sleeping aid for this evening if possible. Physical Exam Physical Exam: Dressings are clean dry and intact. Neurovascular is intact. Calves are soft nontender. Toes are mobile. Results & Data Vital Signs (Past 12 Hours) Vital Signs Temp Pulse Pulse Resp BP Pulse Ox 03/07/19 08:30 52 L 151/85 H 03/07/19 07:00 36.5 C 49 L 16 103/62 97 03/07/19 03:08 36.4 C L 54 L 16 101/57 L 98 03/06/19 22:59 36.7 C 59 L 16 104/58 L 96 Laboratory Results 03/07/19 03/07/19 03/07/19 Range/Units 08:14 05:27 05:27 WBC 11.52 H (4.8-10.8) K/uL RBC 3.75 L (4.7-6.1) M/uL Hgb 11.1 L (14.0-18.0) g/dL Hct 32.9 L (42-52) % MCV 87.7 (80-100) fL MCH 29.6 (25-34) pg MCHC 33.7 (32-36) g/dL RDW Std Deviation 42.2 (36.4-46.3) fL RDW Coeff of Rafal 13.1 (11.5-14.5) % Plt Count 185 (130-400) K/uL MPV 10.5 H (7.4-10.4) fL Sodium 140 (136-145) mmol/L Potassium 5.1 (3.5-5.1) mmol/L Chloride 109 H (98-107) mmol/L Carbon Dioxide 27 (21-32) mmol/L Anion Gap 4.0 (3-11) BUN 36 H (7-18) mg/dl Creatinine 1.56 H (0.6-1.4) mg/dl Est Cr Clr Drug Dosing 54.9 ml/min Est GFR ( Amer) 51.0 Est GFR (Non-Af Amer) 44.0 BUN/Creatinine Ratio 23.3 H (10-20) Glucose 120 H (70-99) mg/dl POC Glucose 112 H (70-99) Calcium 8.6 (8.5-10.1) mg/dl 03/06/19 03/06/19 03/06/19 Range/Units 23:59 20:34 17:02 WBC (4.8-10.8) K/uL RBC (4.7-6.1) M/uL Hgb (14.0-18.0) g/dL Hct (42-52) % MCV (80-100) fL MCH (25-34) pg MCHC (32-36) g/dL RDW Std Deviation (36.4-46.3) fL RDW Coeff of Rafal (11.5-14.5) % Plt Count (130-400) K/uL MPV (7.4-10.4) fL Sodium (136-145) mmol/L Potassium (3.5-5.1) mmol/L Chloride (98-107) mmol/L Carbon Dioxide (21-32) mmol/L Anion Gap (3-11) BUN (7-18) mg/dl Creatinine (0.6-1.4) mg/dl Est Cr Clr Drug Dosing ml/min Est GFR ( Amer) Est GFR (Non-Af Amer) BUN/Creatinine Ratio (10-20) Glucose (70-99) mg/dl POC Glucose 168 H 190 H 176 H (70-99) Calcium (8.5-10.1) mg/dl 03/06/19 Range/Units 12:15 WBC (4.8-10.8) K/uL RBC (4.7-6.1) M/uL Hgb (14.0-18.0) g/dL Hct (42-52) % MCV (80-100) fL MCH (25-34) pg MCHC (32-36) g/dL RDW Std Deviation (36.4-46.3) fL RDW Coeff of Rafal (11.5-14.5) % Plt Count (130-400) K/uL MPV (7.4-10.4) fL Sodium (136-145) mmol/L Potassium (3.5-5.1) mmol/L Chloride (98-107) mmol/L Carbon Dioxide (21-32) mmol/L Anion Gap (3-11) BUN (7-18) mg/dl Creatinine (0.6-1.4) mg/dl Est Cr Clr Drug Dosing ml/min Est GFR ( Amer) Est GFR (Non-Af Amer) BUN/Creatinine Ratio (10-20) Glucose (70-99) mg/dl POC Glucose 161 H (70-99) Calcium (8.5-10.1) mg/dl
--- NOTE | 2019-03-07 21:00 | Hospitalist Progress Note ---
Date of Service March 07, 2019 Assessment & Plan (1) History of total knee arthroplasty: Status post left TKA on 03/06 Doing well postoperatively With slight drop in hemoglobin to 11.1 from 13 at baseline, hemodynamically stable -Pain control, bowel regimen as per orthopedic surgery -Aspirin 81 mg p.o. twice daily for DVT prophylaxis -PT/OT evaluations (2) Hyperlipidemia: Controlled as per patient -Continue atorvastatin (3) Hypertension: Blood pressures here are well controlled -Continue holding lisinopril/HCTZ as creatinine with slight rise over baseline to 1.56 -Follow BMP in the morning and okay to restart lisinopril/HCTZ if creatinine stable and if blood pressure will allow -Follow blood pressures -Continue metoprolol succinate 50 mg once daily (4) Diabetes mellitus, type 2: Blood sugars well controlled here, hemoglobin A1c was 6.9% on preoperative labs in 01/2019 -Orthopedics has consulted pharmacy for glycemic management -Patient is on metformin and glimepiride at home which are held here -Received NPH 20 units last evening and a total of 9 units of NovoLog in the last 24 hours -ADA diet -Can restart home metformin and glimepiride upon discharge (5) BPH (benign prostatic hyperplasia): With lower urinary tract symptoms and a history of urinary retention postoperatively Has now passed a trial of void after removal of Gomez catheter -Continue tamsulosin BladderScan as needed (6) CAD (coronary artery disease): With history of [place] and stent to the left circumflex in 2011 No angina at this time -Continue aspirin, statin, metoprolol (7) Obesity: BMI 36.1 -Needs weight loss (8) CKD (chronic kidney disease) stage 3, GFR 30-59 ml/min: Baseline creatinine around 1.4, with slight increased today to 1.56 as above -Follow BMP in the morning -Hold lisinopril/HCTZ until after creatinine checked in the morning -Avoid nephrotoxins -Renally dose medications (9) DVT prophylaxis: Aspirin 81 mg p.o. twice daily, SCDs Disposition-remain on medical floor Hospitalist service will continue to follow given significant past medical history Subjective Patient doing very well today. Pain in the knee is controlled. Denies headache or lightheadedness with ambulation. Denies chest pain or shortness of breath. No nausea or vomiting is tolerating p.o. He is voiding urine after removal of the Gomez catheter. Review of Systems Review of Systems: All systems reviewed & are unremarkable except as noted in HPI & below Physical Exam Constitutional: WD/WN, vitals as above + obese; no acute distress Eyes: PERRL, conjunctivae normal, anicteric sclerae Neck: trachea midline, no thyromegaly Respiratory: normal respiratory effort, lungs clear to auscultation Cardiovascular: RRR, no murmur, no edema Gastrointestinal (Abdomen): normal bowel sounds, soft, nontender, no hepatosplenomegaly Musculoskeletal: Extremities: + extremities abnormal to inspection (Left lower extremity with dressing in place with ice pack, not removed), no cyanosis and no clubbing Skin: no rashes, warm and dry Neurologic: moves all extremities and awake; no focal motor deficits Psychiatric: A+Ox3, euthymic affect Results & Data Vital Signs (Past 12 Hours) Vital Signs Temp Pulse Pulse Resp BP Pulse Ox 03/07/19 18:51 36.7 C 60 16 127/78 95 03/07/19 15:06 36.4 C L 55 L 18 132/70 95 03/07/19 13:40 97 03/07/19 12:00 63 20 130/72 97 Laboratory Results 03/07/19 03/07/19 03/07/19 Range/Units 20:47 17:05 12:08 WBC (4.8-10.8) K/uL RBC (4.7-6.1) M/uL Hgb (14.0-18.0) g/dL Hct (42-52) % MCV (80-100) fL MCH (25-34) pg MCHC (32-36) g/dL RDW Std Deviation (36.4-46.3) fL RDW Coeff of Rafal (11.5-14.5) % Plt Count (130-400) K/uL MPV (7.4-10.4) fL Sodium (136-145) mmol/L Potassium (3.5-5.1) mmol/L Chloride (98-107) mmol/L Carbon Dioxide (21-32) mmol/L Anion Gap (3-11) BUN (7-18) mg/dl Creatinine (0.6-1.4) mg/dl Est Cr Clr Drug Dosing ml/min Est GFR ( Amer) Est GFR (Non-Af Amer) BUN/Creatinine Ratio (10-20) Glucose (70-99) mg/dl POC Glucose 116 H 98 119 H (70-99) Calcium (8.5-10.1) mg/dl 03/07/19 03/07/19 03/07/19 Range/Units 08:14 05:27 05:27 WBC 11.52 H (4.8-10.8) K/uL RBC 3.75 L (4.7-6.1) M/uL Hgb 11.1 L (14.0-18.0) g/dL Hct 32.9 L (42-52) % MCV 87.7 (80-100) fL MCH 29.6 (25-34) pg MCHC 33.7 (32-36) g/dL RDW Std Deviation 42.2 (36.4-46.3) fL RDW Coeff of Rafal 13.1 (11.5-14.5) % Plt Count 185 (130-400) K/uL MPV 10.5 H (7.4-10.4) fL Sodium 140 (136-145) mmol/L Potassium 5.1 (3.5-5.1) mmol/L Chloride 109 H (98-107) mmol/L Carbon Dioxide 27 (21-32) mmol/L Anion Gap 4.0 (3-11) BUN 36 H (7-18) mg/dl Creatinine 1.56 H (0.6-1.4) mg/dl Est Cr Clr Drug Dosing 54.9 ml/min Est GFR ( Amer) 51.0 Est GFR (Non-Af Amer) 44.0 BUN/Creatinine Ratio 23.3 H (10-20) Glucose 120 H (70-99) mg/dl POC Glucose 112 H (70-99) Calcium 8.6 (8.5-10.1) mg/dl 03/06/19 03/06/19 03/06/19 Range/Units 23:59 20:34 17:02 WBC (4.8-10.8) K/uL RBC (4.7-6.1) M/uL Hgb (14.0-18.0) g/dL Hct (42-52) % MCV (80-100) fL MCH (25-34) pg MCHC (32-36) g/dL RDW Std Deviation (36.4-46.3) fL RDW Coeff of Rafal (11.5-14.5) % Plt Count (130-400) K/uL MPV (7.4-10.4) fL Sodium (136-145) mmol/L Potassium (3.5-5.1) mmol/L Chloride (98-107) mmol/L Carbon Dioxide (21-32) mmol/L Anion Gap (3-11) BUN (7-18) mg/dl Creatinine (0.6-1.4) mg/dl Est Cr Clr Drug Dosing ml/min Est GFR ( Amer) Est GFR (Non-Af Amer) BUN/Creatinine Ratio (10-20) Glucose (70-99) mg/dl POC Glucose 168 H 190 H 176 H (70-99) Calcium (8.5-10.1) mg/dl (1) Hyperlipidemia Hyperlipidemia type: unspecified Qualified Code(s): E78.5 - Hyperlipidemia, unspecified (2) Hypertension Hypertension type: essential hypertension Qualified Code(s): I10 - Essential (primary) hypertension
[2019-03-07] MEDS: ATORVASTATIN 40 MG TAB PO SCH (21:13)
[2019-03-07] MEDS: TAMSULOSIN HCL 0.4 MG CAP PO SCH (21:13)
[2019-03-07] MEDS: FINASTERIDE 5 MG TAB PO SCH (21:14)
[2019-03-07] MEDS: SENNA 8.6 MG TAB PO SCH (21:14)
[2019-03-08] MEDS: OXYCODONE HCL IR 5 MG TAB (IMMEDIATE RELEASE) PO PRN ×3 (03:48→12:52)
[2019-03-08 06:14] LABS: BUN Creatinine Ratio 24.4 (10-20); Calcium 8.7 mg/dl (8.5-10.1); Creatinine Clr Calc Pharmacy 56.8 ml/min; Est GFR (African American) 53.1; Est GFR (Non-African American) 45.8; Potassium 4.3 mmol/L (3.5-5.1)
[2019-03-08] MEDS: ACETAMINOPHEN 500 MG TAB PO SCH ×2 (06:22→12:53)
--- NOTE | 2019-03-08 08:17 | Orthopedic Progress Note ---
Date of Service March 08, 2019 Assessment & Plan (1) Osteoarthritis of left knee: Postop day 2 status post left total knee arthroplasty. Begin PT and OT protocols today. Weightbearing as tolerated DVT prophylaxis with aspirin twice daily, SCDs and PK hose. Pain management with acetaminophen hydromorphone and oxycodone. DC planning-patient is planning on outpatient PT upon discharge. We will see if his pain is controlled later this morning. If so we will plan for discharge to home. Subjective Patient is currently lying in bed awake and alert. He states he had a restless night. He was having some pain issues after the drains were removed and at this time states his pain is a 5 out of 10. He denies any shortness of breath, chest pain, lightheadedness. He has no other complaints this time. He is hoping to go home today. Physical Exam Physical Exam: Incision is clean dry and intact. Some mild erythema is noted on the medial side. He has no drainage noted. Calves are soft nontender. Neurovascular is intact. Toes are mobile. Results & Data Vital Signs (Past 12 Hours) Vital Signs Temp Pulse Resp BP Pulse Ox 03/08/19 07:21 36.4 C L 65 17 141/83 H 93 03/07/19 22:57 36.3 C L 54 L 16 119/70 98 Laboratory Results Laboratory Results WBC 11.52 K/uL (4.8-10.8) H 03/07/19 05:27 RBC 3.75 M/uL (4.7-6.1) L 03/07/19 05:27 Hgb 11.1 g/dL (14.0-18.0) L 03/07/19 05:27 Hct 32.9 % (42-52) L 03/07/19 05:27 MCV 87.7 fL (80-100) 03/07/19 05:27 MCH 29.6 pg (25-34) 03/07/19 05:27 MCHC 33.7 g/dL (32-36) 03/07/19 05:27 RDW Std Deviation 42.2 fL (36.4-46.3) 03/07/19 05:27 RDW Coeff of Rafal 13.1 % (11.5-14.5) 03/07/19 05:27 Plt Count 185 K/uL (130-400) 03/07/19 05:27 MPV 10.5 fL (7.4-10.4) H 03/07/19 05:27 Immature Gran % (Auto) 0.1 % 02/08/19 12:00 Neut % (Auto) 70.6 % 02/08/19 12:00 Lymph % (Auto) 18.6 % 02/08/19 12:00 [place] % (Auto) 6.2 % 02/08/19 12:00 Eos % (Auto) 4.1 % 02/08/19 12:00 Baso % (Auto) 0.4 % 02/08/19 12:00 Immature Gran # (Auto) 0.01 K/uL (0.00-0.02) 02/08/19 12:00 Neut # (Auto) 5.39 K/uL (1.4-6.5) 02/08/19 12:00 Lymph # (Auto) 1.42 K/uL (1.2-3.4) 02/08/19 12:00 [place] # (Auto) 0.47 K/uL (0.11-0.59) 02/08/19 12:00 Eos # (Auto) 0.31 K/uL (0-0.5) 02/08/19 12:00 Baso # (Auto) 0.03 K/uL (0-0.2) 02/08/19 12:00 PT 10.1 Seconds (9.0-12.0) 02/08/19 12:00 INR 1.0 (0.9-1.1) 02/08/19 12:00 APTT 24.2 Seconds (21.0-31.0) 02/08/19 12:00 PTT Ratio 0.9 02/08/19 12:00 Sodium 137 mmol/L (136-145) 03/08/19 05:21 Potassium 4.3 mmol/L (3.5-5.1) D 03/08/19 05:21 Chloride 105 mmol/L (98-107) 03/08/19 05:21 Carbon Dioxide 26 mmol/L (21-32) 03/08/19 05:21 Anion Gap 6.0 (3-11) 03/08/19 05:21 BUN 37 mg/dl (7-18) H 03/08/19 05:21 Creatinine 1.51 mg/dl (0.6-1.4) H 03/08/19 05:21 Est Cr Clr Drug Dosing 56.8 ml/min 03/08/19 05:21 Est GFR ( Amer) 53.1 03/08/19 05:21 Est GFR (Non-Af Amer) 45.8 03/08/19 05:21 BUN/Creatinine Ratio 24.4 (10-20) H 03/08/19 05:21 Glucose 120 mg/dl (70-99) H 03/08/19 05:21 POC Glucose 122 (70-99) H 03/08/19 08:08 Estimat Average Glucose 151 mg/dl 02/08/19 12:00 Hemoglobin A1c 6.9 % (4.5-5.6) H 02/08/19 12:00 Calcium 8.7 mg/dl (8.5-10.1) 03/08/19 05:21 Albumin 3.7 gm/dl (3.4-5.0) 02/08/19 12:00 Urine Color Yellow 02/08/19 12:00 Urine Appearance Clear (Clear) 02/08/19 12:00 Urine pH 5.0 (4.5-7.5) 02/08/19 12:00 Ur Specific [place] 1.020 (1.000-1.030) 02/08/19 12:00 Urine Protein Negative (Negative) 02/08/19 12:00 Urine Glucose (UA) Negative (Negative) 02/08/19 12:00 Urine Ketones Negative (Negative) 02/08/19 12:00 Urine Blood Negative (Negative) 02/08/19 12:00 Urine Nitrite Negative (Negative) 02/08/19 12:00 Urine Bilirubin Negative (Negative) 02/08/19 12:00 Urine Urobilinogen Negative (Negative) 02/08/19 12:00 Ur Leukocyte Esterase Trace (Negative) H 02/08/19 12:00 Urine WBC (Auto) 1-5 /hpf (0-5) 02/08/19 12:00 Urine RBC (Auto) 0-4 /hpf (0-4) 02/08/19 12:00 U Hyaline Cast (Auto) 1-5 /lpf (0-5) 02/08/19 12:00 U Epithel Cells (Auto) 5-10 /lpf (0-5) H 02/08/19 12:00 Urine Bacteria (Auto) Negative (Negative) 02/08/19 12:00 Blood Type B Negative 02/08/19 12:00 Antibody Screen NEGATIVE 02/08/19 12:00
[2019-03-08] MEDS: METOPROLOL SUCC 50MG EXT REL TAB PO SCH (08:31)
[2019-03-08] MEDS: MULTIVITAMIN TAB PO SCH (08:32)
[2019-03-08] MEDS: DOCUSATE SODIUM 100 MG CAP PO SCH (08:32)
[2019-03-08] MEDS: FERROUS GLUCONATE 324 MG TAB PO SCH (08:32)
[2019-03-08] MEDS: ASPIRIN 81 MG ECTAB PO SCH (08:32)
[2019-03-08] MEDS ORDERED: LISINOPRIL 10 MG TAB PO SCH (09:00)
[2019-03-08] MEDS: INSULIN ASPART 100 UNITS/ML 3 ML PEN SC SCH ×2 (09:05→12:48)
--- NOTE | 2019-03-08 09:57 | Hospitalist Progress Note ---
Date of Service March 08, 2019 Assessment & Plan (1) History of total knee arthroplasty: POD #2 s/p left TKR. Asa 81mg BID for DVT proph. Pain control & dispo per ortho. (2) Hyperlipidemia: cont statin (3) Hypertension: resume EMILY today hold HCTZ cont BB (4) Diabetes mellitus, type 2: acceptable control if d/c home today can resume all prior outpatient meds including metformin (CrCl is 56.8) (5) BPH (benign prostatic hyperplasia): cont alpha chaitanya (6) CAD (coronary artery disease): s/p HI and stent to the left circumflex in 2011 Continue aspirin, statin, metoprolol No ischemic symptoms at this time (7) Obesity: BMI 36.1 hopefully with TKR he will be more mobile leading to weight loss (8) CKD (chronic kidney disease) stage 3, GFR 30-59 ml/min: Baseline creatinine around 1.4 ok to resume EMILY had mild rise in Creatinine last 48 hours but it is improving (today 1.5) (9) DVT prophylaxis: Aspirin 81 mg p.o. twice daily I added miralax to his d/c med list in addition to the senna no signs/symptoms of ileus eating well w/o GI symptoms ok from medical standpoint to d/c home today Subjective patient w/ c/o left knee pain only. denies dyspnea, chest pain, abd pain, bloating, nausea, emesis. +flatus -- no stool yet. hoping for d/c today if pain is acceptable. Review of Systems Constitutional: no fever Respiratory: no cough and no dyspnea Cardiovascular: no chest pain Gastrointestinal: no abdominal pain Physical Exam Constitutional: well developed, well nourished and + obese; no acute distress and not ill appearing ENMT: external ear and nose normal, oropharynx normal Respiratory: normal respiratory effort, lungs clear to auscultation Cardiovascular: Rate/Rhythm: regular rate and regular rhythm Heart Sounds: normal S1 and normal S2; no murmur Vessels: posterior tibial pulses present and dorsalis pedis pulses present; no JVD Extremities: no edema Gastrointestinal (Abdomen): normal bowel sounds, soft, nontender, no hepatosplenomegaly Musculoskeletal: left knee incision clean; no drainage; mild joint effusion left knee. Psychiatric: A+Ox3, euthymic affect Results & Data Vital Signs (Past 12 Hours) Vital Signs Temp Pulse Pulse Resp BP Pulse Ox 03/08/19 09:29 36.4 C L 63 65 17 141/83 H 93 03/08/19 07:21 36.4 C L 65 17 141/83 H 93 03/07/19 22:57 36.3 C L 54 L 16 119/70 98 Laboratory Results Laboratory Results - last 24 hr 03/07/19 03/08/19 03/08/19 20:47 03:53 05:21 Sodium 137 Potassium 4.3 D Chloride 105 Carbon Dioxide 26 Anion Gap 6.0 BUN 37 H Creatinine 1.51 H Est Cr Clr Drug Dosing 56.8 Est GFR ( Amer) 53.1 Est GFR (Non-Af Amer) 45.8 BUN/Creatinine Ratio 24.4 H Glucose 120 H POC Glucose 116 H 107 H Calcium 8.7 03/08/19 03/08/19 08:08 12:13 Sodium Potassium Chloride Carbon Dioxide Anion Gap BUN Creatinine Est Cr Clr Drug Dosing Est GFR ( Amer) Est GFR (Non-Af Amer) BUN/Creatinine Ratio Glucose POC Glucose 122 H 120 H Calcium (1) BPH (benign prostatic hyperplasia) Lower urinary tract symptom presence: symptoms absent Qualified Code(s): N40.0 - Benign prostatic hyperplasia without lower urinary tract symptoms (2) Diabetes mellitus, type 2 Diabetes mellitus intermediate school teacher insulin use: without intermediate school teacher use Diabetes mellitus complication status: with kidney complications Diabetes mellitus complication detail: with chronic kidney disease Chronic kidney disease stage: stage 3 (moderate) Qualified Code(s): E11.22 - Type 2 diabetes mellitus with diabetic chronic kidney disease; N18.3 - Chronic kidney disease, stage 3 (moderate) (3) CAD (coronary artery disease) Coronary Disease-Associated Artery/Lesion type: [place] artery [place] vs. transplanted heart: [place] heart Associated angina: without angina Qualified Code(s): I25.10 - Atherosclerotic heart disease of [place] coronary artery without angina pectoris (4) Hyperlipidemia Hyperlipidemia type: unspecified Qualified Code(s): E78.5 - Hyperlipidemia, unspecified (5) History of total knee arthroplasty Laterality: left Qualified Code(s): Z96.652 - Presence of left artificial knee joint (6) Hypertension Hypertension type: essential hypertension Qualified Code(s): I10 - Essential (primary) hypertension (7) Obesity Obesity type: unspecified obesity type Obesity classification: adult class 2 (BMI 35 - 39.9) Serious obesity comorbidity presence: with serious comorbidity Body mass index: BMI 36.0-36.9 Qualified Code(s): E66.01 - Morbid (severe) obesity due to excess calories; Z68.36 - Body mass index (BMI) 36.0-36.9, adult
[2019-03-08] MEDS ORDERED: POLYETHYLENE (MIRALAX) 17 GM PACK PO SCH (10:30)
[2019-03-08] MEDS ORDERED: METFORMIN HCL 500 MG TAB PO SCH (17:00)
--- NOTE | 2019-03-12 03:16 | Discharge Summary ---
DISCHARGE DIAGNOSIS: Degenerative joint disease, left knee. SECONDARY DIAGNOSES: Benign prostatic hypertrophy, coronary artery disease with stenting x1, diabetes mellitus type 2, diverticular disease, history of pancreatitis, history of retinal tear, hyperlipidemia, hypertension, myocardial infarction in 2013. CONSULTS: Franchesca Gomez MD COMPLICATIONS: None. PROCEDURES: Left total knee arthroplasty performed by Dr. Pacheco on 03/06/2019. BRIEF HISTORY: As dictated in history and physical. HOSPITAL SUMMARY: The patient was admitted on the above date and had the above-noted surgery performed which he tolerated well. On his first postoperative day, he was lying in bed, conversing with family. He was alert and oriented, had no complaints. Pain was controlled. Denied shortness of breath, chest pain, lightheadedness. Dressings were clean, dry and intact. Neurovascularly intact. Calves were soft and nontender. Toes were mobile. Vital signs were stable and he was afebrile. Hemoglobin was 11.1 and he was started on physical therapy protocol and continued on DVT prophylaxis and pain management. By his second postoperative day, he is currently lying in bed, awake and alert. He said he had a restless night, was having some pain issues after the drains were removed and this time stated his pain was 5/10. He denied any shortness of breath, chest pain or lightheadedness. He had no other complaints and was hoping to go home. Incision was clean, dry and intact. He had mild erythema noted on the medial side. He had no drainage noted. The calves were soft and nontender. Neurovascularly intact. Toes were mobile. Vital signs were stable. He was afebrile. He was progressing with his physical therapy and by 03/08/2019 it was felt that he could be discharged to home with home health services. For further review, please see chart. LABORATORY AND X-RAY DATA: As per chart. DISCHARGE INSTRUCTIONS: The patient was discharged to home in satisfactory condition on 03/08/2019. DIET: Diabetic. ACTIVITY: Weightbearing as tolerated on left lower extremity. Follow TK instruction sheets and special care instructions as noted. Follow up with Dr. Pacheco in 2 weeks. The patient to call for appointment if one has not made for you. DISCHARGE MEDICATIONS: Acetaminophen 1000 mg p.o. q.8 hours, aspirin 81 mg p.o. b.i.d., oxycodone 5-10 mg p.o. q. 6 hours, MiraLax 17 grams p.o. daily, sennosides 17.2 mg p.o. at bedtime and resume home meds as listed and stop taking original aspirin dosage.
== END 2019-03-08 14:56 | disposition home or self-care (01) | DRG 470 ==
LOC: ASU 04:56 → 3E 10:23

== ENCOUNTER 2019-08-21 04:48 | Inpatient (IN) ==
--- NOTE | 2019-07-25 16:45 | PAT Medication Instructions ---
Medication Instructions Date of Service July 25, 2019 Home Medications atorvastatin 80 mg PO HS finasteride 5 mg PO QPM glimepiride 2 mg PO QAM lisinopril-hydrochlorothiazide 1 tab PO QAM metformin 1,000 mg PO BID metoprolol succinate 50 mg PO QAM tamsulosin 0.4 mg PO QPM aspirin [Ecotrin Low Strength] 81 mg PO QAM cholestyramine (with sugar) 4 g PO DAILY ferrous sulfate iron 325 mg PO DAILY temazepam Restoril 30 mg PO HS STOP taking 48 hours before surgery cholestyramine (with sugar) 4 g PO DAILY DO NOT take the morning of surgery glimepiride 2 mg PO QAM lisinopril-hydrochlorothiazide 1 tab PO QAM metformin 1,000 mg PO BID ferrous sulfate iron 325 mg PO DAILY Take morning of surgery With a small sip of water, OTHERWISE NOTHING TO EAT OR DRINK AFTER MIDNIGHT: metoprolol succinate 50 mg PO QAM aspirin [Ecotrin Low Strength] 81 mg PO QAM Take evening before surgery atorvastatin 80 mg PO HS finasteride 5 mg PO QPM metformin 1,000 mg PO BID tamsulosin 0.4 mg PO QPM temazepam Restoril 30 mg PO HS Other Notes If you have any questions please call us at [phone] or [phone] or [phone] or [phone]
--- NOTE | 2019-07-26 08:57 | History & Physical Report ---
Date of Service July 26, 2019 date of surgery: 08-21-19 Assessment & Plan (1) Tricompartment osteoarthritis of right knee: Risks and benefits of procedure discussed in detail today, patient would like to proceed with a Right total knee replacement at [facility] as scheduled. will obtain medical clearance from Dr Bennett prior to surgery as well as obtain PATs at [facility]. Will place on ASA 81mg po bid x 1 month post op, f/u 2 weeks post op for routine post-operative care and x-ray, sooner if having any problems. will make arrangements for HHPT at the time of discharge. At this point in time, has failed conservative measures and would like to proceed with surgical intervention. History of Present Illness Chief Complaint: right knee pain Primary Care Provider: Jewel Bennett Mr De La Rosa is a 73 year old male who complains of right knee pain, presents for pre-op evaluation prior to a right total knee replacement by dr Pacheco at [facility]. He complains of pain, crepitus, decreased range of motion, instability and stiffness in the right knee. He states that the symptoms have been chronic and non-traumatic. He states that the symptoms occur constantly with intermittent worsening. Currently the patient states that the symptoms are moderate-severe. The pain is described as aching, sharp and throbbing. The symptoms occur con tinuously. The symptoms are aggravated by ascending stairs, daily activities, first steps while awake walking. Prior NSAIDs include Aleve and Ibuprofen. He has been treated with previous cortisone and visco injections in the past without much relief. Allergies Allergy/AdvReac Type Severity Reaction Status Date / Time chlorhexidine Allergy Rash Verified 07/19/19 08:48 [From Hibiclens] pentazocine [From Talwin] Allergy Hallucinati Verified 07/19/19 08:48 ng ketorolac [From Toradol] AdvReac POST-OP Verified 07/19/19 08:48 BLEEDING Home Medications Home Medications Medication Instructions Recorded Confirmed Type atorvastatin 80 mg PO HS 02/04/19 07/19/19 History finasteride 5 mg PO QPM 02/04/19 07/19/19 History glimepiride 2 mg PO QAM 02/04/19 07/19/19 History lisinopril-hydrochlorothiazide 1 tab PO QAM 02/04/19 07/19/19 History metformin 1,000 mg PO BID 02/04/19 07/19/19 History metoprolol succinate 50 mg PO QAM 02/04/19 07/19/19 History tamsulosin 0.4 mg PO QPM 02/04/19 07/19/19 History aspirin [Ecotrin Low Strength] 81 mg PO QAM 07/19/19 07/19/19 History cholestyramine (with sugar) 4 g PO DAILY 07/19/19 07/19/19 History ferrous sulfate [iron] 325 mg PO DAILY 07/19/19 07/19/19 History temazepam [Restoril] 30 mg PO HS 07/19/19 07/19/19 History Past Med/Surg History Medical History Diverticulosis (Acute) BPH (benign prostatic hyperplasia) Bifascicular block Bradycardia CHRONIC; ASYMPTOMATIC CAD (coronary artery disease) STENT TO LCX OM (2011) CKD (chronic kidney disease) stage 3, GFR 30-59 ml/min Diabetes mellitus, type 2 NIDDM History of pancreatitis 07/2018 Hyperlipidemia Hypertension Myocardial Infarction STENT TO LCX OM (2011) Obesity Osteoarthritis Surgical History H/O prior ablation treatment PROSTATE 11/2018 History of arthroscopic knee surgery X2 TOTAL, 1 RIGHT, 1 LEFT History of cardiac cath STENT TO LCX OM (2011) History of colonoscopy History of intraocular lens implant BOTH EYES History of laparoscopic cholecystectomy History of open reduction and internal fixation (ORIF) procedure RIGHT FIBULA History of retinal tear S/P SURGICALLY REPAIR, ? SIDE History of total left knee replacement FEBRUARY 2019 Family History Father Family history of diabetes mellitus Mother Family history of diabetes mellitus Grandmother (Paternal) H/O cancer of gall bladder Mother Tuberculosis Social History Preferred Language: Indonesian Communication Ability: Effective Decontamination Technician Required: No Beliefs That Will Affect Care: None marital status: Current Living Situation: Spouse Current Living Situation Comment: SPOUSE AND SON Other Information That Helps Us Care for You: No Feels Safe at Home: Yes Smoking Status: Former smoker Do You Dip or Chew Tobacco: No ; Smoking End Date: QUIT 2012 ; Second Hand Exposure: Yes (PREVIOUS EXPOSURE) ; Hx Alcohol Use: Yes Alcohol type: beer and hard liquor Hx Substance Use: No Review of Systems Review of Systems: All systems reviewed & are unremarkable except as noted in HPI & below Constitutional: no fever, no chills and no sweats Respiratory: no cough and no dyspnea Cardiovascular: no chest pain, no dyspnea and no orthopnea Gastrointestinal: no abdominal pain, no nausea and no vomiting Musculoskeletal: as per Subjective / HPI Physical Exam Physical Exam: Ht: 5ft 10in Wt: 108.86kg BP: 118/70 Pulse: 72 Constitutional: WD/WN, vitals as above no acute distress Respiratory: normal respiratory effort, lungs clear to auscultation no respiratory distress, no labored breathing and does not use accessory muscles Cardiovascular: RRR, no murmur, no edema Gastrointestinal (Abdomen): normal bowel sounds, soft, nontender, no hepatosplenomegaly Musculoskeletal: Knee: + knee abnormal to inspection (Right Knee: ), + effusion (+1 effusion), + surgical incision (well healed portals), + limited ROM of knee (ROM 0/3/110), + knee ROM with crepitation, + joint line tenderness (medial joint line), + varus alignment and + Janet's sign positive; no deformity, no skin erythema, no ecchymosis, no valgus laxity, no varus laxity, anterior drawer test negative, Anthony's sign negative and pivot shift test negative Results & Data Diagnostic Findings right knee x-ray on Mr Regec demonstrates complete loss joint space medial compartment with overall varus alignment, there is also narrowing of the lateral compartment and patellofemoral joint. there is osteophyte formation, subchondral sclerosis noted, no loose bodies, no acute bony pathology. overall impression tricompartmental degenerative changes to the right knee.
--- NOTE | 2019-07-26 11:37 | Anesthesiology Consultation ---
Date of Service July 26, 2019 Assessment & Plan (1) Encounter for pre-operative examination: - Left TKA: 03/06/19: SAB x 3; successful at L3 2nd attempt + PNB at [facility] - Check BSG AM DOS - ASA okay to continue perioperatively per surgeon* Chart Review Chart Review: Acceptable Risk for Surgery (pending surgeon-ordered PCP clearance (Dr. Bennett)) and Patient seen in Pre Admission Testing Teaching & Discussion Pre-Anesthesia Teaching/Discussion Notes: Instructed NPO after midnight before surgery,except medications with 15 cc of water. Medication instructions provided according to the PAT guidelines. History Surgery Operation Date: 08/21/19 13:35 Proposed Procedures p Right Total Knee Arthroplasty - Tj Pacheco DO Height/Weight Height: 5 ft 10 in Weight: 115.9 kg Allergies Allergy/AdvReac Type Severity Reaction Status Date / Time chlorhexidine Allergy Rash Verified 07/19/19 08:48 [From Hibiclens] pentazocine [From Talwin] Allergy Hallucinati Verified 07/19/19 08:48 ng ketorolac [From Toradol] AdvReac post-op Verified 07/26/19 12:01 bleeding Additional Notes: *No chlorhexidine wipes given at PAT visit due to hx reaction* Medications Home Medications Medication Instructions Recorded Confirmed Last Taken atorvastatin 80 mg PO HS 02/04/19 07/19/19 03/05/19 21:00 finasteride 5 mg PO QPM 02/04/19 07/19/19 03/05/19 21:00 glimepiride 2 mg PO QAM 02/04/19 07/19/19 03/05/19 21:00 lisinopril-hydrochlorothiazide 1 tab PO QAM 02/04/19 07/19/19 03/05/19 08:00 metformin 1,000 mg PO BID 02/04/19 07/19/19 03/05/19 21:00 metoprolol succinate 50 mg PO QAM 02/04/19 07/19/19 03/06/19 04:30 tamsulosin 0.4 mg PO QPM 02/04/19 07/19/19 03/05/19 21:00 aspirin [Ecotrin Low Strength] 81 mg PO QAM 07/19/19 07/19/19 Unknown cholestyramine (with sugar) 4 g PO DAILY 07/19/19 07/19/19 Unknown ferrous sulfate [iron] 325 mg PO DAILY 07/19/19 07/19/19 Unknown temazepam [Restoril] 30 mg PO HS 07/19/19 07/19/19 Unknown multivitamin 1 tab PO HS 07/26/19 07/26/19 Unknown Past Medical History Medical History BPH (benign prostatic hyperplasia) Bradycardia chronic; asymptomatic CAD (coronary artery disease) stent to LCX OM (2011) CKD (chronic kidney disease) stage 3, GFR 30-59 ml/min Diabetes mellitus, type 2 NIDDM Diverticulosis History of pancreatitis 07/2018 Hyperlipidemia Hypertension Myocardial Infarction 2011 Obesity Osteoarthritis Exercise / Class Metabolic Activity III < 4 Walking/Shop/Light housework Past Family History Family History Father Family history of diabetes mellitus Mother Family history of diabetes mellitus Grandmother (Paternal) H/O cancer of gall bladder Mother Tuberculosis Past Surgical History Surgical History H/O prior ablation treatment PROSTATE 11/2018 History of arthroscopic knee surgery X2 TOTAL, 1 RIGHT, 1 LEFT History of cardiac cath STENT TO LCX OM (2011) History of colonoscopy History of intraocular lens implant BOTH EYES History of laparoscopic cholecystectomy History of open reduction and internal fixation (ORIF) procedure RIGHT FIBULA History of retinal tear S/P SURGICALLY REPAIR, ? SIDE History of total left knee replacement 03/06/19: SAB x 3; successful at L3 2nd attempt + PNB at [facility] Past Anesthesia History No Hx of Anesthesia Complications and No Family Hx of Anesthesia Complications History of PONV No Hx of PONV and No Hx of Motion Sickness Social History Smoking Status: Former smoker Do You Dip or Chew Tobacco: No Smoking End Date: Quit 2011 Hx Alcohol Use: Yes Alcohol type: beer and hard liquor alcohol intake frequency: a few times a month Hx Substance Use: No substance use type: does not use Review of Systems Patient denies chest pain, shortness of breath, reflux, cough, wheezing, palpitations. Physical Exam Vital Signs VITALS BP 101/62 P 52 TEMP 97.8 SP02 94%RA RESP 16 PHYSICAL Full neck and c-spine range of motion. Full TMJ range of motion. TMD 3.5 finger breaths Mallampati Score 2 Dentition: several missing sides/molars; chipped upper front, poor dentition, implants on molars Lungs: clear throughout to auscultation Cardiac: regular rate and rhythm, no murmurs noted Spine: normal Carotid arteries: negative bruit Extremities: no edema Trimmed ramsey Testing Laboratory Results 07/26/19 12:14 07/26/19 12:14 PT 9.9 Seconds (9.0-12.0) 07/26/19 12:14 INR 1.0 (0.9-1.1) 07/26/19 12:14 APTT 24.5 Seconds (21.0-31.0) 07/26/19 12:14 Urine Color Yellow 07/26/19 12:14 Urine Appearance Clear (Clear) 07/26/19 12:14 Urine pH 5.5 (4.5-7.5) 07/26/19 12:14 Ur Specific [place] 1.020 (1.000-1.030) 07/26/19 12:14 Urine Protein Negative (Negative) 07/26/19 12:14 Urine Glucose (UA) Negative (Negative) 07/26/19 12:14 Urine Ketones Negative (Negative) 07/26/19 12:14 Urine Nitrite Negative (Negative) 07/26/19 12:14 Ur Leukocyte Esterase Trace (Negative) H 07/26/19 12:14 Urine RBC 0-4 /hpf (0-4) 07/26/19 12:14 Urine WBC 0-5 /hpf (0-5) 07/26/19 12:14 Ur Epithelial Cells 0-5 /lpf (0-5) 07/26/19 12:14 Blood Type B Negative 07/26/19 12:14 Antibody Screen NEGATIVE 07/26/19 12:14 Electrocardiogram Date: 02/08/19 SB at 55bpm. LAD. RBBB. Chest X-Ray Date: 02/08/19 The heart is enlarged and there is atherosclerotic calcification of the thoracic aorta. No active disease in the chest.
[2019-07-26 13:27] LABS: Appearance Urine Clear (Clear); Bilirubin Urine Negative (Negative); Blood Urine Negative (Negative); Color Urine Yellow; Glucose Urine UA Negative (Negative); Ketones Urine Negative (Negative); Leukocyte Esterase Urine Trace (Negative); Nitrite Urine Negative (Negative); Protein Urine Negative (Negative); Urobilinogen Urine Negative (Negative); pH Urine 5.5 (4.5-7.5)
[2019-07-26 13:30] LABS: Basophils # (auto) 0.05 K/uL (0-0.2); Basophils % (auto) 0.7 %; Eosinophils # (auto) 0.38 K/uL (0-0.5); Eosinophils % (auto) 5.6 %; Hemoglobin 13.3 g/dL (14.0-18.0); Immature Granulocytes # (auto) 0.01 K/uL (0.00-0.02); Immature Granulocytes % (auto) 0.1 %; Lymphocytes # (auto) 1.66 K/uL (1.2-3.4); Lymphocytes % (auto) 24.4 %; Mean Corpuscular Hemoglobin 29.6 pg (25-34); Mean Corpuscular Hgb Conc 33.3 g/dL (32-36); Mean Corpuscular Volume 88.9 fL (80-100); Mean Platelet Volume 10.5 fL (7.4-10.4); Monocytes # (auto) 0.45 K/uL (0.11-0.59); Monocytes % (auto) 6.6 %; Neutrophils # (auto) 4.25 K/uL (1.4-6.5); Neutrophils % (auto) 62.6 %; Platelet Count 204 K/uL (130-400); RDW Coefficient of Variation 13.5 % (11.5-14.5); RDW Standard Deviation 43.9 fL (36.4-46.3)
[2019-07-26 13:35] LABS: Partial Thromboplastin Ratio 0.9; Partial Thromboplastin Time 24.5 Seconds (21.0-31.0); Prothrombin Time 9.9 Seconds (9.0-12.0)
[2019-07-26 13:39] LABS: BUN Creatinine Ratio 23.8 (10-20); Calcium 8.4 mg/dl (8.5-10.1); Creatinine Clr Calc Pharmacy 57.2 ml/min; Est GFR (African American) 53.1; Est GFR (Non-African American) 45.8; Potassium 4.8 mmol/L (3.5-5.1)
[2019-07-26 13:57] LABS: Bacteria Urine Negative (Negative); Epithelial Cell Urine 0-5 /lpf (0-5); RBC Urine 0-4 /hpf (0-4); WBC Urine 0-5 /hpf (0-5)
[2019-08-21] MEDS ORDERED: dexAMETHasone 4 MG TAB PO SCH (06:00)
[2019-08-21] MEDS ORDERED: FAMOTIDINE 20 MG TAB PO SCH (06:00)
[2019-08-21] MEDS ORDERED: METOCLOPRAMIDE HCL 10 MG TABLET PO SCH (06:00)
[2019-08-21] MEDS ORDERED: GABAPENTIN 300 MG CAP PO SCH (06:00)
[2019-08-21] MEDS ORDERED: TRANEXAMIC ACID 1,000 MG **IV Pre-op IV SCH (06:00)
[2019-08-21] MEDS ORDERED: CeleBREX 200 MG CAP PO SCH (06:00)
[2019-08-21] MEDS ORDERED: ROPIVACAINE 0.5% HCL/PF 150 MG, BUPIVACAINE 0.5% MPF 30 ML, EPINEPHrine 30MG/30ML (OR U... INSTIL SCH (06:00)
[2019-08-21] MEDS ORDERED: CEFAZOLIN 2000MG 2,000 MG/15 ML SYR IV SCH (06:00)
[2019-08-21] MEDS ORDERED: ACETAMINOPHEN 500 MG TAB PO SCH (06:00)
[2019-08-21] MEDS ORDERED: LR 500ML BOLUS, THEN 15ML/HR IV SCH (06:00)
[2019-08-21] MEDS ORDERED: ROPIVACAINE 0.5% 5 MG/ML 30 ML VIAL ONE (06:24)
[2019-08-21] MEDS ORDERED: EPINEPHrine INJ 1 MG/ML AMP ONE (06:24)
[2019-08-21] MEDS ORDERED: BUPIVACAINE 0.5 % 5 MG/1 ML PF 10ML VIAL ONE (06:24)
[2019-08-21] MEDS ORDERED: TRANEXAMIC ACID 1,000 MG **IV Intra-op IV SCH (06:30)
[2019-08-21] MEDS ORDERED: fentaNYL citrate 100 MCG/2 ML VIAL ONE (06:37)
[2019-08-21] MEDS ORDERED: PROPOFOL IV EMULSION 10 MG/ML 20 ML VIAL IV ONE ×3 (06:37→08:29)
[2019-08-21] MEDS ORDERED: MIDAZOLAM HCL 1 MG/ML 2ML VIAL ONE ×2 (06:37)
[2019-08-21] MEDS ORDERED: LIDOCAINE HCL 2% 2 ML VIAL/AMP(20MG/ML) INFIL ONE (06:37)
[2019-08-21] MEDS ORDERED: ORTHO JOINT ANESTHETIC ONE (06:43)
[2019-08-21] MEDS ORDERED: BACITRACIN INJ 50,000 UNIT VIAL ONE (06:43)
--- NOTE | 2019-08-21 07:03 | History & Physical Bridge Note ---
Date of Service August 21, 2019 History & Physical Bridge Note I have examined the patient, reviewed the History & Physical and in the interval since the performance of the History & Physical I have noted the following changes of clinical significance: no changes noted
[2019-08-21] MEDS ORDERED: ePHEDrine sulfate 50 MG/ML AMP IV PRN (07:33)
[2019-08-21] MEDS ORDERED: ATROPINE SULFATE 0.1 MG/ML 10ML SYR IV PRN (07:33)
[2019-08-21] MEDS ORDERED: ePHEDrine sulfate 50 MG/ML SYR ONE (07:50)
--- NOTE | 2019-08-21 08:16 | Operative Report ---
Post Operative Report Pre & Post Diagnosis Operation Date: 08/21/19 07:00 Pre-Op Diagnosis: Unilateral Primary Osteoarthritis, Right Knee Post-Op Diagnosis: Unilateral Primary Osteoarthritis, Right Knee Procedure Operation Date: 08/21/19 07:00 Actual Procedures p Right Total Knee Arthroplasty, Cemented, Reyes & Nephew(Right) utilizing Reyes & Nephew journey 2 patient matched total knee arthroplasty size 8 femur size 7 tibia size 9 polyethylene 35 patella- Tj Pacheco DO Surgeon Tj Pacheco DO Merchandising Consultant Kyler PIMENTEL Estimated Blood Loss 5 Findings Consistent with Post-Op Diagnosis Patient presents with severe end-stage tricompartmental degenerative joint disease at times surgery patient did have evidence of bone to bone changes medial compartment lateral compartment patellofemoral compartment large medial o steophytes subchondral sclerosis osteophytes eburnated bone with a large effusion Specimens Bone cartilage Drains Medium bore Hemovac Complications none Disposition Accompanied Patient To Recovery: No Disposition: Recovery Room Indications Patient is failed attempted conservative management including physical therapy anti-inflammatories relative rest activity modification corticosteroid injections Visco supplementation bracing patient presents for right total knee arthroplasty the above intraoperative findings are noted times surgery. Description of Procedure After proper identification of the patientAfter proper prepping and draping of the Right lower extremity anterior midline incision was made over the region of the extensor extensor mechanism after meticulous hemostasis was obtained and maintained in subcutaneous tissues a medial parapatellar incision was made The patella was subluxed lateralward the medial lateral gutter were cleaned from any hypertrophic synovitis and scar tissue of the distal femoral block was placed and the distal femoral osteotomy cut was made subsequently the chamfers anterior and posterior osteotomy cuts were made utilizing the 4-in-1 block the tibia was subsequently subluxed anteriorward medial and ateral meniscal remnants were excised in their entirety remnants of the anterior and posterior cruciate ligaments were excised in their entirety excellent exposure of the proximal tibia was obtained the tibial osteotomy guide was placed on the proximal tibial osteotomy cut was made once again the knee was irrigated with copious amounts of sterile saline solution the patella was subsequently everted lateralward thickened scar tissue around the patella was removed the patella was subsequently cut utilizing a freehand technique and was drilled prepared for final preparation and placement of patella socially flexion-extension gaps were checked and the equal and symmetric trials were placed to the appropriate femoral and tibial trials with poly-spacer being placed for equal flexion and extension gaps and full range of motion including extension to 0 and flexion to 140 the trial components after having been taken to recovery range of motion was subsequently removed meticulous hemostasis was obtained and maintained subsequently a knee block injection of joint cocktail including ropivacaine 0.5% 150 mg. Bupivacaine 0.5% epinephrine 1-200,030 mL's toradol 30 mg dexamethasone 4 mg ketamine 10 mg clonidine 100 micrograms normal saline solution 30 mg was infiltrated into the soft tissues of the posterior knee medial lateral gutters and periosteal synovium special attention was paid to protect neurovascular structures at all times subsequently trial components having been removed the knee was irrigated with sterile saline solution. debris was removed the proximal tibia was subsequently prepared and was made ready for the placement of the tibial component tibial component was also cemented and tamped into position the femoral component was subsequently placed and cemented in the position the patellar component was subsequently cemented in position because hemostasis once again obtained and maintained wound having been thoroughly irrigated with debridement and debridement lavage was performed as well as a medial parapatel lar incision closed with #1 Vicryl in interrupted fashion subcutaneous was closed with #2 Vicryl skin was closed with skin clips. PA-C was necessary for prepping and drapping as well as wound closure of deep fascia Sub cutaneous tissue and skin and was necessary for the case. A sterile compressive dressing was placed patient was taken to recovery in stable condition of report dictated by Junior I attest to the content of the Intraoperative Record and any orders documented therein. Any exceptions are noted below. I attest to the content of the Intraoperative Record and any orders documented therein. Any exceptions are noted below.
[2019-08-21] MEDS ORDERED: ZOLPIDEM TARTRATE 5 MG TAB PO PRN (09:10)
--- NOTE | 2019-08-21 09:57 | XRay Report ---
RIGHT KNEE 2 VIEWS History: Right total knee arthroplasty. Degenerative arthritis. Postop. FINDINGS: The patient is status post a right total knee arthroplasty. The hardware is intact. No frac ture or dislocation. Skin lamar and surgical drains are in place. IMPRESSION: Right total knee arthroplasty. No evidence for hardware complication. Electronically signed by: Crispin Davidson M.D. 08/21/2019 9:56 AM
--- NOTE | 2019-08-21 10:02 | Anesthesiology Progress Note ---
Date of Service August 21, 2019 Anesthesia Post Procedure Vital Signs Vital Signs: Temp Pulse Pulse Resp BP Pulse Ox 08/21/19 09:55 36.3 C L 72 21 118/60 96 08/21/19 09:45 71 25 H 121/72 94 08/21/19 09:35 68 12 120/69 94 08/21/19 09:25 69 14 120/67 95 08/21/19 09:15 69 18 115/58 L 98 08/21/19 09:05 66 17 97/58 L 100 08/21/19 08:59 36.4 C L 71 17 107/79 99 08/21/19 05:45 36.8 C 62 16 132/85 96 Pain Intensity Right Knee: Pain Intensity: 0 Transfer of Care Handoff Completed per policy Notes Mental Status: alert / awake / arousable Patient Amnestic to Procedure: Yes Nausea / Vomiting: adequately controlled Pain: adequately controlled Airway Patency, RR, SpO2: stable & adequate BP & HR: stable & adequate Hydration State: stable & adequate Neuraxial Anesthesia: was administered and sensory block is resolving Anesthetic Complications: no major complications apparent
[2019-08-21] MEDS ORDERED: bisacodyL 10 MG SUPP PR PRN (10:25)
[2019-08-21] MEDS ORDERED: ONDANSETRON INJ 2 MG/ML 2 ML VIAL IV PRN (10:25)
[2019-08-21] MEDS ORDERED: HYDROmorphone INJ 1 MG/ML SYRINGE IV PRN (10:25)
[2019-08-21] MEDS ORDERED: METOCLOPRAMIDE HCL INJ 5 MG/ML 2 ML VIAL IV PRN (10:25)
[2019-08-21] MEDS ORDERED: MAGNESIUM HYDROXIDE SUSP 30 ML UDC PO PRN (10:25)
[2019-08-21] MEDS ORDERED: NALOXONE HCL 0.4 MG/1 ML VIAL/CARP IV PRN (10:25)
[2019-08-21] MEDS: SODIUM CHLORIDE 0.9% 1000ML 1,000 ML IV SCH (11:00)
[2019-08-21] MEDS ORDERED: PHARMACY GLYCEMIC MGMT CONSULT PRN (11:09)
[2019-08-21] MEDS ORDERED: CARBOHYDRATES FOR HYPOGLYCEMIA PO PRN (11:45)
[2019-08-21] MEDS ORDERED: DEXTROSE 50% 50 ML SYRINGE IV PRN (11:45)
[2019-08-21] MEDS ORDERED: GLUCOSE 40% GEL 15 GM TUBE PO PRN (11:45)
[2019-08-21] MEDS ORDERED: GLUCAGON FOR INJ 1 MG VIAL IM PRN (11:45)
[2019-08-21] MEDS ORDERED: GLUCOSE 10 TABS/TUBE PO PRN (11:45)
[2019-08-21] MEDS ORDERED: NovoLIN-N (NPH) PER UNIT CHARGE SQ ONE (11:45)
--- NOTE | 2019-08-21 11:53 | Pharmacy Report ---
Glycemic Control Consultation - Date of Service August 21, 2019 - Scope Scope: Glycemic Pharmacist consulted for glycemic control and to write orders per [facility] inpatient glycemic control protocol - Objective Weight: 116.528 kg Accuchecks BSG (last 24hrs): 08/21/19 08/21/19 08/21/19 05:18 09:05 10:44 POC Glucose 117 H 133 H 177 H HbA1c: 6.9% on 02/08/19 {outdated} - Recent Pertinent Medications Outpatient Anti-diabetic Regimen: * Glimepiride 2mg PO QAM * Metformin 1,000mg PO BIDM Risk Factors for Insulin Resistance: * Steroids: Dexamethasone 8mg PO pre-op + dxm 4mg topically in orthomix * Recent Surgery * Diet - Assessment & Plan Assessment & Plan: ASSESSMENT: * 73yo T2DM male with presumed adequate outpatient control per recent A1c. However, last value is outdated - will order repeat lab for tomorrow with AM labs * Pt is maintained on oral antidiabetic agents as an outpatient * Oral agents are not recommended for inpatient use d/t drug interactions, changing PO intake, and difficulty titrating for acute hyper/hypoglycemia. ADA recommends re-initiating outpatient oral agents 1-2 days prior to discharge if/when appropriate if they were held on admission. * Will hold oral agents for admission and utilize SQ basal bolus insulin regimen which is the recommended regimen for inpatient glycemic control. * Will initiate weight based insulin dosing for insulin jesus patient and titrate based on BSG trends. * NPH insulin is used to counteract the hyperglycemic effect of once daily steroids. Q24hr insulin may not be needed based on previous A1c * The dose of NPH given is dependent on the steroid dose given * For doses of prednisone 40mg/day or above --> NPH dose should be 0.4 units/kg; will lower dosing slightly as pt insulin naive and obese. Dose based on ABW for BMI >35 * Typically, patients will also need rapid-acting insulin with meals * Goal is to maintain BSGs <200 mg/dl (ideally <150 mg/dl) to prevent post op complications PLAN FOR INPATIENT GLYCEMIC CONTROL: * Hold outpatient oral diabetes medications * Basal insulin/long acting insulin for steroid induced hyperglycemia * NPH 30 units (0.3 units/kg ABW) SQ x 1 dose * Further dosing TBD - may be able to initiate PO antidiabetic agents tomorrow depending on clinical status * Bolus insulin * NovoLog per scale ACHS or Q6hrs while NPO * Goal Range: Low 100 mg/dL - High 140 mg/dL * Correction Factor: 20 mg/dL/unit * Nutritional / Prandial insulin per carb ratio of 1 unit per 7 grams CHO consumed * Please note that the plan above was derived based on current level of insulin resistance and hospital stress. These recommendations are appropriate for inpatient admission only. Plan of care upon discharge will need to be reassessed to avoid potential outpatient hypo/hyperglycemia. Thank you.
[2019-08-21] MEDS: INSULIN ASPART 100 UNITS/ML 3 ML PEN SC SCH ×3 (12:11→20:59)
[2019-08-21] MEDS: ACETAMINOPHEN 500 MG TAB PO SCH ×2 (12:16→20:52)
[2019-08-21] MEDS ORDERED: INFLUENZA VACCINE HIGH DOSE 65+ 0.5 ML SYR IM ONE (13:00)
[2019-08-21] MEDS ORDERED: INFLUENZA ADMINISTRATION CHARGE ONE (13:00)
[2019-08-21] MEDS: CEFAZOLIN 2000MG 2,000 MG/15 ML SYR IV SCH ×2 (16:11→23:30)
[2019-08-21] MEDS: DOCUSATE SODIUM 100 MG CAP PO SCH (20:53)
[2019-08-21] MEDS: SENNA 8.6 MG TAB PO SCH (20:53)
[2019-08-21] MEDS: TAMSULOSIN HCL 0.4 MG CAP PO SCH (20:54)
[2019-08-21] MEDS: ASPIRIN 81 MG ECTAB PO SCH (20:54)
[2019-08-21] MEDS: ATORVASTATIN 40 MG TAB PO SCH (20:55)
[2019-08-21] MEDS: FINASTERIDE 5 MG TAB PO SCH (20:56)
[2019-08-21] MEDS: TEMAZEPAM 15 MG CAPSULE PO SCH (20:58)
[2019-08-21] MEDS: OXYCODONE HCL IR 5 MG TAB (IMMEDIATE RELEASE) PO PRN (23:08)
[2019-08-22] MEDS: ACETAMINOPHEN 500 MG TAB PO SCH ×3 (04:51→21:16)
[2019-08-22 05:47] LABS: Hematocrit (blood only) 31.4 % (42-52); Hemoglobin 10.6 g/dL (14.0-18.0); Mean Corpuscular Hemoglobin 29.6 pg (25-34); Mean Corpuscular Hgb Conc 33.8 g/dL (32-36); Mean Corpuscular Volume 87.7 fL (80-100); Mean Platelet Volume 10.4 fL (7.4-10.4); Platelet Count 157 K/uL (130-400); RDW Coefficient of Variation 12.9 % (11.5-14.5); RDW Standard Deviation 41.7 fL (36.4-46.3); Red Blood Count 3.58 M/uL (4.7-6.1); White Blood Count 10.84 K/uL (4.8-10.8)
[2019-08-22 05:59] LABS: Estimated Average Glucose 143 mg/dl; Hemoglobin A1C 6.6 % (4.5-5.6)
[2019-08-22 06:18] LABS: BUN Creatinine Ratio 24.1 (10-20); Creatinine Clr Calc Pharmacy 53.5 ml/min; Est GFR (African American) 48.8; Est GFR (Non-African American) 42.1; Potassium 4.7 mmol/L (3.5-5.1)
--- NOTE | 2019-08-22 08:45 | Anesthesiology Progress Note ---
Date of Service August 22, 2019 Anesthesia Post Procedure Vital Signs Vital Signs: Temp Pulse Pulse Resp BP BP Pulse Ox 08/22/19 07:07 36.4 C L 55 L 16 112/69 95 08/22/19 02:52 36.3 C L 67 16 114/63 96 08/21/19 22:55 36.3 C L 71 16 133/69 93 08/21/19 19:28 36.3 C L 72 16 149/83 H 96 08/21/19 15:13 94 08/21/19 15:08 36.1 C L 55 L 18 106/62 97 08/21/19 13:10 60 16 120/66 96 08/21/19 11:10 63 16 117/68 98 08/21/19 10:40 60 18 114/70 96 08/21/19 10:10 36.5 C 68 18 101/59 L 97 08/21/19 10:05 70 22 109/85 93 08/21/19 09:55 36.3 C L 72 21 118/60 96 08/21/19 09:45 71 25 H 121/72 94 08/21/19 09:35 68 12 120/69 94 08/21/19 09:25 69 14 120/67 95 08/21/19 09:15 69 18 115/58 L 98 08/21/19 09:05 66 17 97/58 L 100 08/21/19 08:59 36.4 C L 71 17 107/79 99 Pain Intensity Right Knee: Pain Intensity: 4 Notes Mental Status: alert / awake / arousable and participated in evaluation Patient Amnestic to Procedure: Yes Nausea / Vomiting: adequately controlled Pain: adequately controlled Airway Patency, RR, SpO2: stable & adequate BP & HR: stable & adequate Hydration State: stable & adequate Neuraxial Anesthesia: was administered and sensory block resolved Anesthetic Complications: no major complications apparent and Pt Satisfied with anesthetic care
--- NOTE | 2019-08-22 08:53 | Orthopedic Progress Note ---
Date of Service August 22, 2019 Assessment & Plan (1) Tricompartment osteoarthritis of right knee: Postop day 1 status post right total knee arthroplasty. PT /OT protocols. Weightbearing as tolerated. DVT prophylaxis with aspirin twice daily, PK Zee. Pain management with acetaminophen, hydromorphone, oxycodone DC planning-patient is planning on outpatient PT after discharge. Subjective Postop day 1 status post right total knee arthroplasty. Patient is sitting up in the chair at the bedside. Awake and alert. No complaints. Pain is controlled. Denies shortness of breath, chest pain, lightheadedness. States he was up a lot last night with the IV fluids causing him to use the restroom. No problems with urination. Physical Exam Physical Exam: Dressings are clean, dry, and intact. Neurovascular is intact. Patient states that he did have symptoms of a foot drop last night which was likely due to intraoperative injection but this morning he states that this has resolved. He has good dorsiflexion and plantar/flexion at this time. Denies calf tenderness. Has had 150 mL from his Hemovac from the previous shift. Results & Data Vital Signs (Past 12 Hours) Vital Signs Temp Pulse Resp BP Pulse Ox 08/22/19 07:07 36.4 C L 55 L 16 112/69 95 08/22/19 02:52 36.3 C L 67 16 114/63 96 08/21/19 22:55 36.3 C L 71 16 133/69 93 Laboratory Results Laboratory Results WBC 10.84 K/uL (4.8-10.8) H 08/22/19 05:21 RBC 3.58 M/uL (4.7-6.1) L 08/22/19 05:21 Hgb 10.6 g/dL (14.0-18.0) L 08/22/19 05:21 Hct 31.4 % (42-52) L 08/22/19 05:21 MCV 87.7 fL (80-100) 08/22/19 05:21 MCH 29.6 pg (25-34) 08/22/19 05:21 MCHC 33.8 g/dL (32-36) 08/22/19 05:21 RDW Std Deviation 41.7 fL (36.4-46.3) 08/22/19 05:21 RDW Coeff of Rafal 12.9 % (11.5-14.5) 08/22/19 05:21 Plt Count 157 K/uL (130-400) 08/22/19 05:21 MPV 10.4 fL (7.4-10.4) 08/22/19 05:21 Immature Gran % (Auto) 0.1 % 07/26/19 12:14 Neut % (Auto) 62.6 % 07/26/19 12:14 Lymph % (Auto) 24.4 % 07/26/19 12:14 Bennett % (Auto) 6.6 % 07/26/19 12:14 Eos % (Auto) 5.6 % 07/26/19 12:14 Baso % (Auto) 0.7 % 07/26/19 12:14 Immature Gran # (Auto) 0.01 K/uL (0.00-0.02) 07/26/19 12:14 Neut # (Auto) 4.25 K/uL (1.4-6.5) 07/26/19 12:14 Lymph # (Auto) 1.66 K/uL (1.2-3.4) 07/26/19 12:14 Bennett # (Auto) 0.45 K/uL (0.11-0.59) 07/26/19 12:14 Eos # (Auto) 0.38 K/uL (0-0.5) 07/26/19 12:14 Baso # (Auto) 0.05 K/uL (0-0.2) 07/26/19 12:14 PT 9.9 Seconds (9.0-12.0) 07/26/19 12:14 INR 1.0 (0.9-1.1) 07/26/19 12:14 APTT 24.5 Seconds (21.0-31.0) 07/26/19 12:14 PTT Ratio 0.9 07/26/19 12:14 Sodium 138 mmol/L (136-145) 08/22/19 05:21 Potassium 4.7 mmol/L (3.5-5.1) 08/22/19 05:21 Chloride 106 mmol/L (98-107) 08/22/19 05:21 Carbon Dioxide 23 mmol/L (21-32) 08/22/19 05:21 Anion Gap 9.0 (3-11) 08/22/19 05:21 BUN 39 mg/dl (7-18) H 08/22/19 05:21 Creatinine 1.62 mg/dl (0.6-1.4) H 08/22/19 05:21 Est Cr Clr Drug Dosing 53.5 ml/min 08/22/19 05:21 Est GFR ( Amer) 48.8 08/22/19 05:21 Est GFR (Non-Af Amer) 42.1 08/22/19 05:21 BUN/Creatinine Ratio 24.1 (10-20) H 08/22/19 05:21 Glucose 126 mg/dl (70-99) H 08/22/19 05:21 POC Glucose 131 (70-99) H 08/22/19 08:01 Estimat Average Glucose 143 mg/dl 08/22/19 05:21 Hemoglobin A1c 6.6 % (4.5-5.6) H 08/22/19 05:21 Calcium 8.0 mg/dl (8.5-10.1) L 08/22/19 05:21 Urine Color Yellow 07/26/19 12:14 Urine Appearance Clear (Clear) 07/26/19 12:14 Urine pH 5.5 (4.5-7.5) 07/26/19 12:14 Ur Specific [place] 1.020 (1.000-1.030) 07/26/19 12:14 Urine Protein Negative (Negative) 07/26/19 12:14 Urine Glucose (UA) Negative (Negative) 07/26/19 12:14 Urine Ketones Negative (Negative) 07/26/19 12:14 Urine Blood Negative (Negative) 07/26/19 12:14 Urine Nitrite Negative (Negative) 07/26/19 12:14 Urine Bilirubin Negative (Negative) 07/26/19 12:14 Urine Urobilinogen Negative (Negative) 07/26/19 12:14 Ur Leukocyte Esterase Trace (Negative) H 07/26/19 12:14 Urine RBC 0-4 /hpf (0-4) 07/26/19 12:14 Urine WBC 0-5 /hpf (0-5) 07/26/19 12:14 Ur Epithelial Cells 0-5 /lpf (0-5) 07/26/19 12:14 Urine Bacteria Negative (Negative) 07/26/19 12:14 Blood Type B Negative 07/26/19 12:14 Antibody Screen NEGATIVE 07/26/19 12:14
[2019-08-22] MEDS: METOPROLOL SUCC 50MG EXT REL TAB PO SCH (09:30)
[2019-08-22] MEDS: MULTIVITAMIN TAB PO SCH (09:31)
[2019-08-22] MEDS: DOCUSATE SODIUM 100 MG CAP PO SCH ×2 (09:31→21:13)
[2019-08-22] MEDS: INSULIN ASPART 100 UNITS/ML 3 ML PEN SC SCH ×4 (09:31→20:58)
[2019-08-22] MEDS: INSULIN GLARGINE SOLOSTAR 100 UNITS/ML 3 ML PEN SC SCH ×2 (09:31→21:12)
[2019-08-22] MEDS: ASPIRIN 81 MG ECTAB PO SCH ×2 (09:31→21:13)
[2019-08-22] MEDS: FERROUS SULFATE 325 MG TAB PO SCH (09:31)
[2019-08-22] MEDS ORDERED: CHOLESTYRAMINE LIGHT 4 GM PKT PO SCH (11:00)
--- NOTE | 2019-08-22 11:12 | Pharmacy Report ---
Pharmacy Glycemic Short Note 2 - Date of Service August 22, 2019 - Glycemic Short BSG Results (Last 24 hours): 08/21/19 08/21/19 08/22/19 17:21 20:34 05:21 Glucose 126 H POC Glucose 151 H 171 H 08/22/19 08:01 Glucose POC Glucose 131 H OUTPATIENT ANTIDIABETIC REGIMEN: * Glimepiride 2 mg PO qAM * Metformin 1000 mg PO BIDM * A1c: 6.6% (08/22/19) ASSESSMENT: * SR is a 73 year old male POD #1 s/p right total knee arthroplasty * Patient received 8 mg PO dexamethasone preoperatively in addition to intraoperative orthomix infiltration * Covered with 0.3 unit/kg (adjusted body weight) - 30 unit dose of NPH * BSGs ranging 126-177 mg/dL over past 24 hours * Fasting BSG this morning of 131 mg/dL * Of note, SCr is 1.62 mg/dL today, which appears to be elevated from baseline (1.42 mg/dL on 02/08/19) PLAN FOR INPATIENT GLYCEMIC CONTROL: * Hold outpatient oral diabetes medications - will utilize SC basal/bolus insulin * Basal insulin * Lantus 10 units SQ BID (approximately 0.2 unit/kg daily dose - common for outpatient initiation) * Bolus insulin * NovoLog per scale ACHS or Q6hrs while NPO * Goal Range: Low 110 mg/dL - High 140 mg/dL * Correction Factor: 20 mg/dL/unit * Nutritional / Prandial insulin per carb ratio of 1 unit per 7 grams CHO consumed PLAN FOR DISCHARGE: * A1c of 6.6% demonstrates good glycemic control with current outpatient regimen. No changes recommended at this time.
[2019-08-22] MEDS: OXYCODONE HCL IR 5 MG TAB (IMMEDIATE RELEASE) PO PRN ×2 (11:47→21:11)
[2019-08-22] MEDS: SODIUM CHLORIDE 0.9% 1000ML 1,000 ML IV SCH (14:24)
[2019-08-22] MEDS: TEMAZEPAM 15 MG CAPSULE PO SCH (21:12)
[2019-08-22] MEDS: TAMSULOSIN HCL 0.4 MG CAP PO SCH (21:12)
[2019-08-22] MEDS: FINASTERIDE 5 MG TAB PO SCH (21:12)
[2019-08-22] MEDS: SENNA 8.6 MG TAB PO SCH (21:13)
[2019-08-22] MEDS: ATORVASTATIN 40 MG TAB PO SCH (21:13)
[2019-08-23] MEDS: OXYCODONE HCL IR 5 MG TAB (IMMEDIATE RELEASE) PO PRN (02:52)
[2019-08-23] MEDS: ACETAMINOPHEN 500 MG TAB PO SCH (02:54)
[2019-08-23 08:09] VITALS: BP 144/73; PULSE 60; TEMP 97.5; O2SAT 93
--- NOTE | 2019-08-23 08:12 | Orthopedic Progress Note ---
Date of Service August 23, 2019 Assessment & Plan (1) Tricompartment osteoarthritis of right knee: Postop day 2 status post right total knee arthroplasty. PT /OT protocols. Weightbearing as tolerated. DVT prophylaxis with aspirin twice daily, ANJELs, PK espinoza. Pain management with acetaminophen, hydromorphone, oxycodone DC planning-patient is planning on outpatient PT after discharge. Plan for discharge today after PT and OT protocols performed. Subjective Postop day 2 status post right total knee arthroplasty. Patient is lying in bed. He is awake and alert. He states he is having some knee pain this morning and feels that he may have overdone did his exercises and ambulation yesterday. Pain is not out of control. He denies shortness of breath, chest pain, lightheadedness. He is hoping to go home today. Physical Exam Physical Exam: Incision is clean, dry, intact. Mild to moderate swelling noted of the knee. No overt erythema. Calves are soft and nontender. Neurovascular is intact. Toes are mobile. Results & Data Vital Signs (Past 12 Hours) Vital Signs Temp Pulse Resp BP Pulse Ox 08/22/19 23:01 36.3 C L 59 L 14 128/68 94
[2019-08-23] MEDS: INSULIN GLARGINE SOLOSTAR 100 UNITS/ML 3 ML PEN SC SCH (09:06)
[2019-08-23] MEDS: FERROUS SULFATE 325 MG TAB PO SCH (09:06)
[2019-08-23] MEDS: MULTIVITAMIN TAB PO SCH (09:06)
[2019-08-23] MEDS: DOCUSATE SODIUM 100 MG CAP PO SCH (09:06)
[2019-08-23] MEDS: ASPIRIN 81 MG ECTAB PO SCH (09:06)
[2019-08-23] MEDS: METOPROLOL SUCC 50MG EXT REL TAB PO SCH (09:07)
[2019-08-23] MEDS: INSULIN ASPART 100 UNITS/ML 3 ML PEN SC SCH (09:08)
--- NOTE | 2019-08-23 09:46 | Pharmacy Report ---
Pharmacy Glycemic Short Note 2 - Date of Service August 23, 2019 - Glycemic Short BSG Results (Last 24 hours): 08/22/19 08/22/19 08/22/19 12:09 17:04 20:44 POC Glucose 122 H 95 114 H 08/23/19 08:01 POC Glucose 104 H OUTPATIENT ANTIDIABETIC REGIMEN: * Glimepiride 2 mg PO qAM * Metformin 1000 mg PO BIDM * A1c: 6.6% (08/22/19) ASSESSMENT: 08/23 * Patient is currently receiving an average of 36 units of insulin per day * 20 units of basal insulin * 16 units of prandial/correctional insulin * BSGs ranging 95-122 mg/dL over the past 24hrs * Risk factors for insulin resistance are decreasing over the past 24hrs * Steroid dosing should be worn off - last dose given perioperatively * Now POD # 2 s/p surgery * Anticipating insulin regimen to remain fairly constant over the next 24 hours * Patient requiring < 0.2 units/kg of basal and stress equivalence of 2 for bolus 08/22 * SR is a 73 year old male POD #1 s/p right total knee arthroplasty * Patient received 8 mg PO dexamethasone preoperatively in addition to intraoperative orthomix infiltration * Covered with 0.3 unit/kg (adjusted body weight) - 30 unit dose of NPH * BSGs ranging 126-177 mg/dL over past 24 hours * Fasting BSG this morning of 131 mg/dL * Of note, SCr is 1.62 mg/dL today, which appears to be elevated from baseline (1.42 mg/dL on 02/08/19) PLAN FOR INPATIENT GLYCEMIC CONTROL: * Continue to hold outpatient oral diabetes medications since SCr somewhat elevated * Basal insulin - no change * Lantus 10 units SQ BID * Bolus insulin - no change * NovoLog per scale ACHS or Q6hrs while NPO * Goal Range: Low 110 mg/dL - High 140 mg/dL * Correction Factor: 20 mg/dL/unit * Nutritional / Prandial insulin per carb ratio of 1 unit per 7 grams CHO consumed PLAN FOR DISCHARGE: * A1c of 6.6% demonstrates good glycemic control with current outpatient regimen. No changes recommended at this time. * Would recommend close follow-up with renal function since he's on metformin
--- NOTE | 2019-08-24 19:57 | Discharge Summary ---
Date of Service Date of discharge: August 23, 2019 date of admission: 08/21/19 Admission HPI Per Admitting Provider Mr De La Rosa is a 73 year old male who complains of right knee pain, presents for pre-op evaluation prior to a right total knee replacement by dr Pacheco at [facility]. He complains of pain, crepitus, decreased range of motion, instability and stiffness in the right knee. He states that the symptoms have been chronic and non-traumatic. He states that the symptoms occur constantly with intermittent worsening. Currently the patient states that the symptoms are moderate-severe. The pain is described as aching, sharp and throbbing. The symptoms occur continuously. The symptoms are aggravated by ascending stairs, daily activities, first steps while awake walking. Prior NSAIDs include Aleve and Ibuprofen. He has been treated with previous cortisone and visco injections in the past without much relief. Principal Diagnosis right knee osteoarthritis Discharge Exam Constitutional WD/WN, vitals as above no acute distress Musculoskeletal right knee: NVDI, calf SNT, negative arturo sign. DP palpable, able to wiggle toes/ankle movement without difficulty. incision is clean and dry Discharge Data Allergies Allergy/AdvReac Type Severity Reaction Status Date / Time chlorhexidine Allergy Rash Verified 08/21/19 05:17 [From Hibiclens] pentazocine [From Talwin] Allergy Hallucinati Verified 08/21/19 05:17 ng ketorolac [From Toradol] AdvReac post-op Verified 08/21/19 05:17 bleeding Consultations 08/21/19 10:25 Consult Case Management - Discharge Planning Routine Procedures Performed Operation Date: 08/21/19 07:00 Actual Procedures p Right Total Knee Arthroplasty, Cemented, Reyes [employer] Nephew(Right) - Tj Pacheco, Ordered Studies 08/21/19 05:00 US - OR guided needle placemen Routine 08/21/19 07:34 US - OR guided needle placemen Stat Hospital Course (1) Tricompartment osteoarthritis of right knee: Postop day 2 status post right total knee arthroplasty. PT /OT protocols. Weightbearing as tolerated. DVT prophylaxis with aspirin twice daily, SCDs, PK hose. Pain management with acetaminophen, hydromorphone, oxycodone DC planning-patient is planning on outpatient PT after discharge. Total Time Total Time Spent Total Time Spent (In Minutes): 20 Total Time Includes: Examination of the Patient, Discharge Planning and Medication Reconciliation Discharge Plan Discharge Items Patient Disposition: Home - Self-Care Reason For Visit: Unilateral Primary Osteoarthritis, Right Knee Discharge Diagnosis: right knee osteoarthritis Activity: Per Instructions section Weightbearing: Right weightbearing Weightbearing Comment: as tolerated with walker Non-emergency contact: Surgeon Call non-emergency contact if: your pain is not controlled, your temperature is above 101.5, your wound has increased redness and your wound has increased drainage Follow-up/Referrals: Jewel Bennett DO [Primary Care Provider] - Diet: Regular Addtl Attending Provider Instructions: ACTIVITY RECOMMENDATIONS: SELF CARE INSTRUCTIONS AFTER TOTAL KNEE REPLACEMENT A. You may need to continue a physical therapy program after discharge from the hospital. There are several options available to you. Your doctor will assist you in selecting the best one for you. 1. An out-patient facility 2 to 3 times a week for therapy or home therapy. 2. Continue working on all exercises taught to you in the hospital. Your goals should be to increase bending of your knee to 90 degrees and beyond and to fully straighten your knee. B. You may progress at your own pace from walking with a walker or crutches to a cane; then to no assistive devices. C. Make walking a part of your daily routine. Be up as much as comfortable with rest periods throughout the day. Rest with leg elevation is very important. Use the ice wrap frequently for the first 3-4 weeks. D. There are no restrictions on activities. You may ride in a car, shop, participate in business performance advisor and all social activities. E. Wear the long elastic stockings (PK hose) 20 hours a day for 2 weeks after surgery. They can be removed several times a day for laundering and for a bath. F. You may shower, no tub baths until cleared by your doctor. SPECIAL CARE INSTRUCTIONS: VERY IMPORTANT TO READ AND REVIEW A. There are a few signs you need to watch for after you are home. Call [facility] if you notice any of the followin. Increased severe knee pain. Some pain is expected especially when you exercise. 2. Increased swelling in your leg or knee; pain or swelling of the calf muscle in either lower leg. 3. Any fluid drainage from the incision. 4. Shortness of breath or chest pain. B. Please call [facility] at if you have any concerns or questions about your operation or recovery. The doctor or his nurse will return your call promptly. C. You must take antibiotics before dental work, bladder, bowel or other surgery. Your doctor will provide you with a permanent care to carry describing this precaution. IMPORTANT: * REMEMBER TO TAKE ASPIRIN, 81 MG, TWICE DAILY FOR 4 WEEKS UNLESS OTHERWISE DIRECTED. THIS IS YOUR BLOOD THINNER. * HIGH RISK PATIENTS MAY BE PRESCRIBED A STRONGER BLOOD THINNER. THIS WILL BE PROVIDED AT DISCHARGE. * CALL IF INCREASED PAIN, REDNESS, DRAINAGE OR FEVER GREATER THAT 101. * WEAR PK HOSE 20 HOURS PER DAY FOR 2 WEEKS. * DERMABOND Prineo- This is a mesh tape dressing that is covered with glue. It should remain in place until the incision is properly healed, usually 10-14 days. This dressing is designed to naturally slough off. You may trim the excess mesh tape as it peels off. Incision may be briefly wet in a shower. Dry immediately by blotting with a clean, dry towel. Do not bath or swim until instructed by your doctor. Do not scratch, rub, or pick at the dressing. Do not apply any topical ointments or lotions until dressing is completely removed and/or instructed by your doctor. There may be a small piece of suture material at one end of your incision. Do not pull or trim this. If it is bothersome or catching on clothing, you may cover it with a band-aid. . FOLLOW UP VISIT: If appointment is not already scheduled: Please call [facility] to make a follow-up appointment for 2 weeks after your surgery at . Stand-Alone Forms: [facility] Medications and DC Order Prescriptions: New sennosides [Senokot] 8.6 mg Tablet 17.2 mg PO HS PRN (Reason: constipation) Qty: 30 RF: 0 aspirin [Ecotrin Low Strength] 81 mg Tablet,Delayed Release (Dr/Ec) 81 mg PO BID 30 Days Qty: 60 RF: 0 acetaminophen [Tylenol Extra Strength] 500 mg Tablet 1,000 mg PO Q8H 14 Days Qty: 84 RF: 0 oxycodone 5 mg Tablet 5 mg PO Q4H PRN (Reason: pain) Qty: 30 RF: 0 Continued atorvastatin 80 mg Tablet 80 mg PO HS RF: 0 metoprolol succinate 50 mg Tablet Extended Release 24 Hr 50 mg PO QAM RF: 0 glimepiride 2 mg Tablet 2 mg PO QAM RF: 0 tamsulosin 0.4 mg Capsule 0.4 mg PO QPM RF: 0 metformin 1,000 mg Tablet 1,000 mg PO BID RF: 0 lisinopril-hydrochlorothiazide 20-25 mg Tablet 1 tab PO QAM RF: 0 finasteride 5 mg Tablet 5 mg PO QPM RF: 0 temazepam [Restoril] 30 mg Capsule 30 mg PO HS RF: 0 ferrous sulfate [iron] 325 mg (65 mg iron) Tablet 325 mg PO DAILY RF: 0 cholestyramine (with sugar) 4 gram Powder 4 g PO DAILY RF: 0 multivitamin 1 tab PO HS RF: 0 Discontinued aspirin [Ecotrin Low Strength] 81 mg tablet,delayed release (DR/EC) 81 mg PO QAM RF: 0 Discharge Orders: Discharge Order (Routine); Ordered 08/23/19 Ordered By: Chadd Beaver Admission Data Admit Date/Time: 08/21/19 09:10 Attending Provider: Tj Pacheco Admit Provider: Tj Pacheco Primary Care Provider: Jewel Bennett Other Interventions: Discharge Summary Assessment (RN) Last Done: 08/23/19 09:44 DC Date/Time DO NOT enter until pt leaves facility: 08/23/19 10:41
== END 2019-08-23 10:41 | disposition home or self-care (01) | DRG 470 ==
LOC: ASU 04:48 → 3E 09:10